=== PATIENT | male | born 1955 | race Caucasian/White ===

== ENCOUNTER 2022-01-08 10:28 | Outpatient (CLI) | payer OTHER, SELFPAY ==
[2022-01-08 16:55] LABS: Basophils Absolute Auto 0.1 K/mm3 (0.0-0.1); Basophils Percent Auto 1.2 % (0.2-1.2); Eosinophils Absolute Auto 0.2 K/mm3 (0-0.3); Eosinophils Percent Auto 2.5 % (0-4.4); Hematocrit 49.8 % (42.0-52.0); Hemoglobin 16.3 g/dL (14.0-18.0); Immature Granulocyte Absolute 0.02 K/mm3 (0.00-0.031); Immature Granulocyte Percent A 0.2 % (0-0.5); Lymphocytes Absolute Auto 2.22 K/mm3 (0.9-3.2); Lymphocytes Percent Auto 23.1 % (18.3-44.2); Mean Corpuscular HGB Conc 32.7 g/dl (32-36); Mean Corpuscular Hemoglobin 32.6 pg (26-34); Mean Corpuscular Volume 99.6 fl (80-100); Mean Platelet Volume 10.6 fl (7.4-10.4); Monocytes Absolute Auto 0.8 K/mm3 (0.1-0.6); Monocytes Percent Auto 8.5 % (2.6-8.5); Neutrophils Absolute Auto 6.2 K/mm3 (1.3-6.7); Neutrophils Percent Auto 64.5 % (45.5-73.1); Platelet Count Result 266 k/mm3 (150-375); Red Cell Distribution Width 12.9 % (11.5-14.5); White Blood Count 9.6 K/mm3 (4.5-10.0)
[2022-01-08 17:23] LABS: Alanine Aminotransferase 47 U/L (6-50); Albumin Level 4.8 g/dL (3.5-5.1); Alkaline Phosphatase 67 U/L (38-126); Anion Gap 9 mmol/L (8-16); Aspartate Amino Transferase 40 U/L (17-59); Bilirubin,Total 1.1 mg/dL (0.2-1.3); Blood Urea Nitrogen 10 mg/dL (9-20); Calcium 9.8 mg/dL (8.4-10.2); Carbon Dioxide 30 mmol/L (22-30); Chloride 94 mmol/L (98-107); Cholesterol 254 mg/dL (0-200); Estimated Glomerular Filt Rate > 60; Glucose 89 mg/dL (65-110); HDL Direct 58 mg/dL; Potassium 4.8 mmol/L (3.4-5.0); Sodium 133 mmol/L (137-145); Triglycerides 94 mg/dL (<150)
[2022-01-08 17:36] LABS: LDL Cholesterol Direct 176 mg/dL
[2022-01-08 17:55] LABS: Prostate Specific Antigen 1.2 ng/mL (< OR = 4.0)
== END 2022-01-08 10:29 | disposition home or self-care (01) ==
LOC: ANHGOSHLAB 10:30
PROVIDERS: PCP Nurse Practitioner Family; Visit Provider Nurse Practitioner Family
DX: Z12.5 Encounter for screening for malignant neoplasm of prostate (principal); E78.5 Hyperlipidemia, unspecified; I10 Essential (primary) hypertension
CPT/HCPCS: 36415; 80053; 80061; 84153; 84443; 85025; G0103

== ENCOUNTER 2022-02-16 07:45 | Outpatient (CLI) | payer OTHER, SELFPAY ==
[2022-02-16 09:36] LABS: Alanine Aminotransferase 49 U/L (6-50); Albumin Level 4.5 g/dL (3.5-5.1); Alkaline Phosphatase 59 U/L (38-126); Anion Gap 11 mmol/L (8-16); Aspartate Amino Transferase 36 U/L (17-59); Bilirubin,Total 1.2 mg/dL (0.2-1.3); Blood Urea Nitrogen 8 mg/dL (9-20); Calcium 8.8 mg/dL (8.4-10.2); Carbon Dioxide 28 mmol/L (22-30); Chloride 95 mmol/L (98-107); Cholesterol 165 mg/dL (0-200); Estimated Glomerular Filt Rate > 60; Glucose 94 mg/dL (65-110); HDL Direct 60 mg/dL; Potassium 4.9 mmol/L (3.4-5.0); Sodium 134 mmol/L (137-145); Triglycerides 57 mg/dL (<150)
[2022-02-16 09:42] LABS: LDL Cholesterol Direct 89 mg/dL
== END 2022-02-16 07:46 | disposition home or self-care (01) ==
LOC: ANHLAB 07:48
PROVIDERS: PCP Nurse Practitioner Family; Visit Provider Internal Medicine Cardiovascular Disease
DX: E78.5 Hyperlipidemia, unspecified (principal)
CPT/HCPCS: 36415; 80053; 80061

== ENCOUNTER 2022-02-23 07:39 | Outpatient (CLI) | payer OTHER, SELFPAY ==
--- NOTE | ~2022-02-23 | US_ITS ---
EXAMINATION: US arterial ankle brachial ind DATE: 02/23/2022 08:38 INDICATION: Peripheral vascular disease, unspecified. TECHNIQUE: Segmental pressures and plethysmographic and Doppler waveforms of the brachial and lower e xtremity arteries were obtained. COMPARISON: None. FINDINGS: Right and left brachial artery pressures of 104 mm Hg and 107 mm Hg, respectively, are concordant (no rmal difference <= 30 mmHg). The right ankle-brachial index (ALEX) is 0.47 (normal >= 0.9-1.0). The right great toe-brachial index (TBI) is 0.69 (normal >= 0.65). Arterial Doppler waveforms are biphasic at the ankle. The left ALEX is 0.63. The left dorsalis pedis arterial pressure was not measured due to poor detectab ility, but flow was demonstrated in the anterior tibial artery and dorsalis pedis on pulsed Doppler. The left TBI is 0.6. Arterial Doppler waveforms are biphasic in posterior tibial artery. IMPRESSION: 1. Severely decreased right ALEX and moderately decreased left ALEX, consistent with arterial occlusive disease. Reviewed, dictated and finalized at location A. IMPRESSION: 1. Severely decreased right ALEX and moderately decreased left ALEX, consistent w ith arterial occlusive disease.
--- NOTE | ~2022-02-23 | CT_ITS ---
EXAMINATION: CT lung screening DATE: 02/23/2022 08:39 INDICATION: Personal history of nicotine dependence, current smoker with 50 pack year history TECHNIQUE: Computed tomography (CT) of the chest was performed without intravenous contrast. The dose -length product (DLP) was 97.19 mGy-cm. Automated exposure control and iterative reconstruction techn Xiimoue were employed. COMPARISON: None FINDINGS: There is moderate emphysema. There are multiple small nodules of the lungs with an upper lo be predominance. The largest measures 4 mm in the right upper lobe. Cardiomegaly is noted. There is s mooth interlobular septal thickening in the lower lobes, consistent with mild pulmonary edema. There are trace pleural effusions. There is no pneumothorax. A single lead pacemaker of the left chest wall ends with its lead in the right ventricle. Mediastinal lymph nodes are upper limits of normal in siz e. IMPRESSION: 1. Lung-RADS category 2: Benign appearance or behavior. Continue annual screening with noncontrast lo w-dose chest CT in 12 months. Reviewed, dictated and finalized at location B. IMPRESSION: 1. Lung-RADS category 2: Benign appearance or behavior. Continue annual screeni ng with noncontrast low-dose chest CT in 12 months.
== END 2022-02-23 07:40 | disposition home or self-care (01) ==
PROVIDERS: PCP Nurse Practitioner Family; Visit Provider Nurse Practitioner Family
DX: Z12.2 Encounter for screening for malignant neoplasm of respiratory organs (principal); I73.9 Peripheral vascular disease, unspecified; Z87.891 Personal history of nicotine dependence
CPT/HCPCS: 71271; 93922

== ENCOUNTER 2022-03-06 07:49 | Outpatient (CLI) | payer OTHER, SELFPAY ==
--- NOTE | 2022-03-06 08:19 | ECHO_ITS ---
Patient Info Name: Miguelito Castelan Age: 67 years : 1955 Gender: Male Ht: 70 in Wt: 155 lbs BSA: 1.86 m2 HR: 70 bpm BP: 125 / 72 mmHg Technical Quality: Good Exam Date: 03/06/2022 9:16 AM Exam Location: [facility] Patient Status: Outpatient Admit Date: 03/06/2022 Staff Ordering Physician: Flavio Razo DO Manager Oracle: Jessenia Norris RDCS Attending Provider: Flavio Razo DO Referring Physician: Flavio Razo DO; Exam Type: CA echo dop color flow w con Study Info Indications I25.110 - Atherosclerotic heart disease of [place] coronary artery with unstable angina pectoris Complete two-dimensional, color flow and Doppler transthoracic echocardiogram is performed with contrast to opacify the left ventricle and to improve the deliniation of the left ventricle endocardial borders. Contrast/Agitated Saline Contrast/Ag. Saline: Definity Amount: 2.00 ml Administered By: Joanne Kramer RN Existing IV Access: Yes IV Access Condition: patent with no signs of infiltration Summary 1. Left ventricular chamber dimension is severely enlarged. 2. Left ventricular systolic function is globally severely reduced, estimated at 15-20%. 3. Entire apex is akinetic, other segments are hypokinetic. 4. Definity contrast administered improved wall motion interpretation. 5. The left ventricular diastolic function is grade I diastolic dysfunction. 6. E/e' 7 is not elevated. 7. Linear artifact in right ventricle suggestive of catheter(s), pacemaker lead(s), or ICD lead(s). 8. Left atrial chamber dimension is moderately enlarged. 9. Linear artifact in the right atrium suggestive of catheter(s), pacemaker lead(s), or ICD lead(s). 10. There is mild aortic valve sclerosis. 11. The mitral valve has mildly calcified annulus. 12. There is mild mitral valve regurgitation. Left Ventricle E/e' 7 is not elevated. Definity contrast administered improved wall motion interpretation. Entire apex is akinetic, other segments are hypokinetic. Left ventricular systolic function is globally severely reduced, estimated at 15-20%. Left ventricular chamber dimension is severely enlarged. The left ventricular diastolic function is grade I diastolic dysfunction. Right Ventricle Linear artifact in right ventricle suggestive of catheter(s), pacemaker lead(s), or ICD lead(s). Right ventricular systolic function is normal and with normal TAPSE 1.8 cm. Right ventricular chamber dimension is normal. Left Atria Left atrial chamber dimension is moderately enlarged. Right Atria Linear artifact in the right atrium suggestive of catheter(s), pacemaker lead(s), or ICD lead(s). Right atrial chamber dimension is normal. Aortic Valve The aortic valve is trileaflet. There is mild aortic valve sclerosis. There is no aortic valve stenosis. There is no aortic valve regurgitation. Pulmonic Valve There is no pulmonic regurgitation. Mitral Valve The mitral valve has mildly calcified annulus. There is no mitral valve stenosis. There is mild mitral valve regurgitation. Tricuspid Valve There is no tricuspid valve regurgitation. Pericardium/Pleural There is no pericardial effusion. Inferior Vena Cava Normal inferior vena cava with >50% collapse upon inspiration consistent with normal right atrial pressure, 5 mmHg. Aorta The aortic root size at the sinus of Valsalva is normal. Left Ventricular Outflow Tract
[2022-03-06] MEDS: PERFLUTREN LIPID MICROSPHERES 1.5 ML VIAL DILUTED TO 10 ML TOTAL VOLUME IV PUSH (09:30)
== END 2022-03-06 07:50 | disposition home or self-care (01) ==
LOC: ANHCARD 07:50
PROVIDERS: PCP Nurse Practitioner Family; Referring Provider Internal Medicine Cardiovascular Disease; Visit Provider Internal Medicine Cardiovascular Disease
DX: I25.10 Atherosclerotic heart disease of native coronary artery without angina pectoris (principal); I34.0 Nonrheumatic mitral (valve) insufficiency; I35.8 Other nonrheumatic aortic valve disorders
CPT/HCPCS: C8929; Q9957

== ENCOUNTER 2022-03-21 20:06 | Outpatient (NON) | payer OTHER, SELFPAY | END 2022-03-21 20:07 | disposition home or self-care (01) | LOC: ANHLAB 20:07 | PROVIDERS: PCP Family Medicine; Visit Provider Family Medicine | DX: R82.90 Unspecified abnormal findings in urine (principal) | CPT/HCPCS: 87086 ==

== ENCOUNTER 2023-01-10 08:45 | Outpatient (CLI) | payer OTHER, SELFPAY ==
[2023-01-10 13:05] LABS: Basophils Absolute Auto 0.1 K/mm3 (0.0-0.1); Basophils Percent Auto 1.2 % (0.2-1.2); Eosinophils Absolute Auto 0.2 K/mm3 (0-0.3); Eosinophils Percent Auto 2.6 % (0-4.4); Hematocrit 42.6 % (42.0-52.0); Hemoglobin 14.3 g/dL (14.0-18.0); Immature Granulocyte Absolute 0.04 K/mm3 (0.00-0.031); Immature Granulocyte Percent A 0.5 % (0-0.5); Lymphocytes Absolute Auto 1.54 K/mm3 (0.9-3.2); Lymphocytes Percent Auto 18.1 % (18.3-44.2); Mean Corpuscular HGB Conc 33.6 g/dl (32-36); Mean Corpuscular Hemoglobin 32.9 pg (26-34); Mean Corpuscular Volume 98.2 fl (80-100); Mean Platelet Volume 9.6 fl (7.4-10.4); Monocytes Absolute Auto 0.7 K/mm3 (0.1-0.6); Monocytes Percent Auto 7.8 % (2.6-8.5); Neutrophils Absolute Auto 5.9 K/mm3 (1.3-6.7); Neutrophils Percent Auto 69.8 % (45.5-73.1); Platelet Count Result 246 k/mm3 (150-375); Red Blood Count 4.34 M/mm3 (4.6-6.20); Red Cell Distribution Width 12.5 % (11.5-14.5); White Blood Count 8.5 K/mm3 (4.5-10.0)
[2023-01-10 13:21] LABS: Alanine Aminotransferase 35 U/L (6-50); Albumin Level 4.6 g/dL (3.5-5.1); Alkaline Phosphatase 56 U/L (38-126); Anion Gap 6 mmol/L (8-16); Aspartate Amino Transferase 61 U/L (17-59); Bilirubin,Total 0.9 mg/dL (0.2-1.3); Blood Urea Nitrogen 14 mg/dL (9-20); Calcium 9.3 mg/dL (8.4-10.2); Carbon Dioxide 31 mmol/L (22-30); Chloride 93 mmol/L (98-107); Cholesterol 183 mg/dL (0-200); Estimated Glomerular Filt Rate > 60; Glucose 82 mg/dL (65-110); HDL Direct 46 mg/dL; Potassium 4.5 mmol/L (3.4-5.0); Sodium 130 mmol/L (137-145); Triglycerides 137 mg/dL (<150); Uric Acid 7.7 mg/dL (3.5-8.5)
[2023-01-10 13:33] LABS: LDL Cholesterol Direct 107 mg/dL
[2023-01-10 13:47] LABS: Vitamin D 25 Hydroxy 30.8 ng/mL
[2023-01-10 13:50] LABS: Prostate Specific Antigen 0.8 ng/mL (< OR = 4.0); Thyroid Stimulating Hormone 0.932 uIU/mL (0.465-4.680)
[2023-01-10 17:09] LABS: Hemoglobin A1C 5.4 % (<5.7)
== END 2023-01-10 08:46 | disposition home or self-care (01) ==
LOC: ANHGOSHLAB 08:46
PROVIDERS: PCP Family Medicine; Visit Provider Nurse Practitioner Family
DX: R60.9 Edema, unspecified (principal); Z13.21 Encounter for screening for nutritional disorder; Z13.1 Encounter for screening for diabetes mellitus; Z12.5 Encounter for screening for malignant neoplasm of prostate; Z13.29 Encounter for screening for other suspected endocrine disorder; Z13.220 Encounter for screening for lipoid disorders; I10 Essential (primary) hypertension
CPT/HCPCS: 36415; 80053; 80061; 82306; 83036; 84153; 84443; 84550; 85025; G0103

== ENCOUNTER 2023-07-17 08:26 | Outpatient (CLI) | payer OTHER, SELFPAY ==
[2023-07-17 13:46] LABS: Basophils Absolute Auto 0.1 K/mm3 (0.0-0.1); Eosinophils Absolute Auto 0.3 K/mm3 (0-0.3); Eosinophils Percent Auto 2.5 % (0-4.4); Hemoglobin 16.4 g/dL (14.0-18.0); Immature Granulocyte Absolute 0.06 K/mm3 (0.00-0.031); Immature Granulocyte Percent A 0.5 % (0-0.5); Lymphocytes Absolute Auto 2.51 K/mm3 (0.9-3.2); Lymphocytes Percent Auto 21.3 % (18.3-44.2); Mean Corpuscular HGB Conc 33.5 g/dl (32-36); Mean Corpuscular Hemoglobin 33.1 pg (26-34); Mean Corpuscular Volume 98.8 fl (80-100); Monocytes Absolute Auto 1.1 K/mm3 (0.1-0.6); Monocytes Percent Auto 9.6 % (2.6-8.5); Neutrophils Absolute Auto 7.7 K/mm3 (1.3-6.7); Neutrophils Percent Auto 65.1 % (45.5-73.1); Platelet Count Result 298 k/mm3 (150-375); Red Blood Count 4.96 M/mm3 (4.6-6.20); Red Cell Distribution Width 12.5 % (11.5-14.5); White Blood Count 11.8 K/mm3 (4.5-10.0)
[2023-07-17 13:53] LABS: Alanine Aminotransferase 46 U/L (6-50); Alkaline Phosphatase 68 U/L (38-126); Anion Gap 12 mmol/L (8-16); Aspartate Amino Transferase 97 U/L (17-59); Bilirubin,Total 1.2 mg/dL (0.2-1.3); Blood Urea Nitrogen 12 mg/dL (9-20); Calcium 10.1 mg/dL (8.4-10.2); Carbon Dioxide 30 mmol/L (22-30); Chloride 94 mmol/L (98-107); Cholesterol 210 mg/dL (0-200); Estimated Glomerular Filt Rate > 60; Glucose 80 mg/dL (65-110); HDL Direct 62 mg/dL; Potassium 4.7 mmol/L (3.4-5.0); Sodium 136 mmol/L (137-145); Triglycerides 137 mg/dL (<150)
[2023-07-17 14:04] LABS: LDL Cholesterol Direct 118 mg/dL
== END 2023-07-17 08:27 | disposition home or self-care (01) ==
LOC: ANHGOSHLAB 08:27
PROVIDERS: PCP Family Medicine; Visit Provider Nurse Practitioner Family
DX: E78.5 Hyperlipidemia, unspecified (principal); I10 Essential (primary) hypertension; I25.119 Atherosclerotic heart disease of native coronary artery with unspecified angina pectoris; F17.210 Nicotine dependence, cigarettes, uncomplicated; Z95.5 Presence of coronary angioplasty implant and graft
CPT/HCPCS: 36415; 80053; 80061; 85025

== ENCOUNTER 2023-08-20 07:25 | Outpatient (CLI) | payer OTHER, SELFPAY ==
--- NOTE | 2023-08-20 07:28 | ECHO_ITS ---
Patient Info Name: Miguelito Castelan Age: 68 years : 1955 Gender: Male Ht: 70 in Wt: 156 lbs BSA: 1.87 m2 HR: 72 bpm BP: 120 / 78 mmHg Technical Quality: Fair Exam Date: 08/20/2023 7:47 AM Exam Location: [facility] Patient Status: Outpatient Admit Date: 08/20/2023 Staff Ordering Physician: Flavio Razo DO Graphic Editor: Attending Provider: Flavio Razo DO Referring Physician: Dung TRISTAN; Exam Type: CA echo doppler color flow Study Info Indications I51.9 - Heart disease, unspecified Complete two-dimensional, color flow and Doppler transthoracic echocardiogram is performed. Summary 1. Complete two-dimensional, color flow and Doppler transthoracic echocardiogram is performed. 2. Left ventricular chamber dimension is severely enlarged. 3. Basal to apical anteroseptum, septum and apex are akinetic. 4. Left ventricular systolic function is severely globally reduced, estimated at 25-30%. 5. The left ventricular diastolic function is grade I diastolic dysfunction. 6. E/e' 5 is not elevated. 7. There is trace tricuspid valve regurgitation. 8. No pulmonary hypertension, estimated pulmonary arterial systolic pressure is 22 mmHg. Left Ventricle E/e' 5 is not elevated. Basal to apical anteroseptum, septum and apex are akinetic. Left ventricular systolic function is severely globally reduced, estimated at 25-30%. Left ventricular chamber dimension is severely enlarged. The left ventricular diastolic function is grade I diastolic dysfunction. Right Ventricle Right ventricular systolic function is normal and with normal TAPSE 2.1 cm. Right ventricular chamber dimension is normal. Left Atria Left atrial chamber dimension is normal. Right Atria Right atrial chamber dimension is normal. Aortic Valve The aortic valve is trileaflet. There is no aortic valve stenosis. There is no aortic valve regurgitation. Pulmonic Valve There is no pulmonic regurgitation. Mitral Valve There is no mitral valve stenosis. There is no mitral valve regurgitation. Tricuspid Valve There is trace tricuspid valve regurgitation. No pulmonary hypertension, estimated pulmonary arterial systolic pressure is 22 mmHg. Pericardium/Pleural There is no pericardial effusion. Inferior Vena Cava Normal inferior vena cava with >50% collapse upon inspiration consistent with normal right atrial pressure, 5 mmHg. Aorta The aortic root size at the sinus of Valsalva is normal. Left Ventricular Outflow Tract Name Value Normal LVOT 2D LVOT Diameter 2.0 cm LVOT Doppler LVOT Peak Gradient 3 mmHg LVOT Mean Gradient 1 mmHg LVOT VTI 16 cm LVOT VTI/AV VTI Ratio 0.7 LVOT Stroke Volume 52 ml LVOT CO 3.8 l/min LVOT CI 2.1 l/min/m2 Pulmonic Valve Name Value Normal PV Doppler PV
== END 2023-08-20 07:26 | disposition home or self-care (01) ==
LOC: ANHCARD 07:27
PROVIDERS: PCP Family Medicine; Visit Provider Internal Medicine Cardiovascular Disease
DX: R93.1 Abnormal findings on diagnostic imaging of heart and coronary circulation (principal); I07.1 Rheumatic tricuspid insufficiency
CPT/HCPCS: 93306

== ENCOUNTER 2024-01-15 08:42 | Outpatient (CLI) | payer OTHER, SELFPAY ==
[2024-01-15 13:23] LABS: Basophils Absolute Auto 0.1 K/mm3 (0.0-0.1); Basophils Percent Auto 1.1 % (0.2-1.2); Cholesterol 177 mg/dL (0-200); Eosinophils Absolute Auto 0.2 K/mm3 (0-0.3); Eosinophils Percent Auto 2.3 % (0-4.4); HDL Direct 59 mg/dL; Hematocrit 46.9 % (42.0-52.0); Hemoglobin 15.8 g/dL (14.0-18.0); Immature Granulocyte Absolute 0.05 K/mm3 (0.00-0.031); Immature Granulocyte Percent A 0.6 % (0-0.5); Lymphocytes Absolute Auto 1.67 K/mm3 (0.9-3.2); Lymphocytes Percent Auto 18.4 % (18.3-44.2); Mean Corpuscular HGB Conc 33.7 g/dl (32-36); Mean Corpuscular Hemoglobin 33.3 pg (26-34); Mean Corpuscular Volume 98.7 fl (80-100); Mean Platelet Volume 10.5 fl (7.4-10.4); Monocytes Absolute Auto 0.8 K/mm3 (0.1-0.6); Monocytes Percent Auto 8.4 % (2.6-8.5); Neutrophils Absolute Auto 6.3 K/mm3 (1.3-6.7); Neutrophils Percent Auto 69.2 % (45.5-73.1); Platelet Count Result 214 k/mm3 (150-375); Red Blood Count 4.75 M/mm3 (4.6-6.20); Red Cell Distribution Width 12.4 % (11.5-14.5); Triglycerides 154 mg/dL (<150); White Blood Count 9.1 K/mm3 (4.5-10.0)
[2024-01-15 13:34] LABS: LDL Cholesterol Direct 96 mg/dL
[2024-01-15 14:10] LABS: Hemoglobin A1C 5.4 % (<5.7)
[2024-01-18 15:24] LABS: Vitamin D 1,25 (OH)2 Total 38 pg/mL (18-72); Vitamin D2 1,25 (OH)2 <8 pg/mL; Vitamin D3 1,25 (OH)2 38 pg/mL
== END 2024-01-15 08:43 | disposition home or self-care (01) ==
LOC: ANHGOSHLAB 08:42
PROVIDERS: PCP Family Medicine; Visit Provider Nurse Practitioner Family
DX: Z12.5 Encounter for screening for malignant neoplasm of prostate (principal); R73.03 Prediabetes; E03.9 Hypothyroidism, unspecified; E55.9 Vitamin D deficiency, unspecified; E53.8 Deficiency of other specified B group vitamins; E78.5 Hyperlipidemia, unspecified
CPT/HCPCS: 36415; 80061; 82607; 82652; 83036; 84153; 84443; 85025; G0103

== ENCOUNTER 2024-02-28 07:57 | Outpatient (CLI) | payer OTHER, SELFPAY ==
--- NOTE | ~2024-02-28 | XR_ITS ---
EXAMINATION: XR lumbar spine min 4V DATE: 02/28/2024 08:10 INDICATION: Low back pain. TECHNIQUE: 5 views of lumbar spine were obtained. COMPARISON: None. FINDINGS: There is 5 degrees levocurvature of thoracolumbar spine. There is 3 mm anterolisthesis of L 4 on L5. Vertebral body heights are normal. There is mildly decreased disc height at L4-L5 and severe ly decreased disc height at L5-S1. There are endplate osteophytes at all levels. There is multilevel severe facet joint osteoarthritis in lower lumbar spine. IMPRESSION: 1. Severe lower lumbar spondylosis. Reviewed, dictated and finalized at location A.
== END 2024-02-28 07:58 | disposition home or self-care (01) ==
PROVIDERS: PCP Family Medicine; Visit Provider Family Medicine
DX: M47.896 Other spondylosis, lumbar region (principal)
CPT/HCPCS: 72110

== ENCOUNTER 2024-06-25 06:38 | Outpatient (CLI) | payer OTHER, SELFPAY ==
--- NOTE | ~2024-06-25 | CT_ITS ---
EXAMINATION: CT lumbar spine wo con DATE: 06/25/2024 07:03 INDICATION: Low back pain, unspecified. TECHNIQUE: Computed tomography (CT) of the lumbar spine was performed without intravenous contrast. A utomated exposure control and iterative reconstruction technique were employed. The dose-length produ ct was 373.06 mGy-cm. COMPARISON: Lumbar spine radiographs 02/28/2024 FINDINGS: A calcified right lung nodule is consistent with old granulomatous disease. There is calcif ied atherosclerosis of the aorta and many of the other arteries. There is 4 degrees levocurvature of lumbar spine. Vertebral body heights are normal. There is severely decreased disc height at L5-S1. Th e following disc levels are specifically discussed: L1-L2: The disc does not extend beyond the endplate margin. There is severe bilateral facet joint ost eoarthritis. There is no neural foraminal stenosis. There is no central canal stenosis. L2-L3: The disc is bulging. There is severe bilateral facet joint osteoarthritis. There is mild bilat eral neural foraminal stenosis. There is mild central canal stenosis. L3-L4: The disc is bulging. There is severe bilateral facet joint osteoarthritis. There is mild bilat eral neural foraminal stenosis. There is mild central canal stenosis. L4-L5: The disc is bulging. There is severe bilateral facet joint osteoarthritis. There is moderate b ilateral neural foraminal stenosis. There is mild central canal stenosis. L5-S1: The disc is bulging. There is severe bilateral facet joint osteoarthritis. There is mild bilat eral neural foraminal stenosis. There is mild central canal stenosis. IMPRESSION: 1. Severe lower lumbar spondylosis. Reviewed, dictated and finalized at location A. OR NATUROPATHIC
== END 2024-06-25 06:39 | disposition home or self-care (01) ==
PROVIDERS: PCP Family Medicine; Visit Provider Anesthesiology Pain Medicine
DX: M47.817 Spondylosis without myelopathy or radiculopathy, lumbosacral region (principal)
CPT/HCPCS: 72131

== ENCOUNTER 2024-08-12 08:49 | Outpatient (CLI) | payer OTHER, SELFPAY ==
--- OUTSIDE RECORDS SUMMARY | 2024-08-12 09:19 | XMS_ITS | Encounter Summary ---
Author Organization [facility] Address [address] [place] [address] Care Team Providers Care Custom Miller Name Role Phone Sharif Goodwin MD Primary Care Provider [phone]- [phone] Caity Hickman MD Primary Care Provider Encounter Details Date Type Department Care Team ([facility] Contact Info) Description 10/10/2016 Orders Only [facility] ProviderElio MD [address] [place] [id number] Social History Tobacco Use Types Packs/Day Years Used Date Smoking Tobacco: Former Comments:Smoking History Pac ks/day: 1 Packs Alcohol Use Standard Drinks/Week Comments Yes 0 (1 standard drink = 0.6 oz pur e alcohol) Sex and Gender Information Value Date Recorded Sex Assigned at Not on file 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 Historical Provider [facility] LESLIE CASAREZ Final Result documented in this encounter Visit Diagnoses Not on filedocumented in this encounter Additional Health Concerns Infection Onset Date Last Indicated Resolved Time COVID: Suspected 02/26/2022 02/26/2022 02/26/2022 11:31 PM CDT documented as of this encounter Care Teams Custom Miller Relationship Specialty Start Date End Date Sharif Goodwin MD [address] [place] [address] PCP - General 09/14/16 03/16/20 Caity Hickman MD [address] [place] [address] PCP - General Family Practice 03/17/20 documented as of this encounter
--- OUTSIDE RECORDS SUMMARY | 2024-08-12 09:19 | XMS_ITS | Encounter Summary ---
Author Organization [facility] Address [address] [place] [address] Care Team Providers Care Window And Siding Craftsman Name Role Phone Sharif Goodwin MD Primary Care Provider +1- [phone] Caity Hickman MD Primary Care Provider Encounter Details Date Type Department Care Team ([facility] Contact Info) Description 07/13/2016 Orders Only [facility] ProviderElio MD [address] [place] [address] Social History Tobacco Use Types Packs/Day Years Used Date Smoking Tobacco: Never Assessed Sex and Gender Information Value Date Recorded Sex Assigned at Not on file 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 Historical Provider [facility] LESLIE CASAREZ Final Result documented in this encounter Visit Diagnoses Not on filedocumented in this encounter Additional Health Concerns Infection Onset Date Last Indicated Resolved Time COVID: Suspected 02/26/2022 02/26/2022 02/26/2022 11:31 PM CDT documented as of this encounter Care Teams Window And Siding Craftsman Relationship Specialty Start Date End Date Sharif Goodwin MD [address] [place] [address] PCP - General 09/14/16 03/16/20 Caity Hickman MD [address] [place] [address] PCP - General Family Practice 03/17/20 documented as of this encounter
--- OUTSIDE RECORDS SUMMARY | 2024-08-12 09:20 | XMS_ITS | Encounter Summary ---
Author Organization [facility] Address [address] [place] [address] Care Team Providers Care Manager Asset Name Role Phone Caity Hickman MD Primary Care Provider Encounter Details Date Type Department Care Team (Late st Contact Info) Description 03/08/2022 Abstract [facility], [address] [address] Baldomero Gold MA Social History Tobacco Use Types Packs/Day Years Used Date Smoking Tobacco: Never Assessed Sex and Gender Information Value Date Recorded Sex Assigned at Not on file Legal Sex Male 11:55 AM CDT Gender Identity Not on file Sexual Orientation Not on file documented as of this encounter Plan of Treatment Not on file documented as of this encounter Procedures Procedure Name Priority Date/Time Associated Diagnosis Comments COMPREHENSIVE METABOLIC PANEL Routine 02/16/2022 LIPID PANEL Routine 02/16/2022 documented in this encounter Results * COMPREHENSIVE METABOLIC PANEL (02/16/2022) SODIUM S/P/B 134 GLUCOSE 94 mg/dL AST 36 BUN 8 CREATININE S/P/B 0.70 0.7 - 1.3 CALCIUM S/P/B 8.8 POTASSIUM S/P/B 4.9 CHLORIDE S/P/B 95 ALT 49 GFR ESTIMATE >60 us Doc [facility] Final Result * LIPID PANEL (02/16/2022) CHOLESTEROL 165 TRIGLYCERIDES 57 HDL 60 LDL (CALCULATED) 89 us Doc [facility] Final Result documented in this encounter Visit Diagnoses Not on filedocumented in this encounter Care Teams Manager Asset Relationship Specialty Start Date End Date Caity Hickman MD [address] [place] [address] PCP - General FAMILY PRACTICE 03/07/22 documented as of this encounter
--- OUTSIDE RECORDS SUMMARY | 2024-08-12 09:20 | XMS_ITS | Clinical Summary ---
Author Organization [facility] Address [address] [place] [address] Care Team Providers Care Food Porter Name Role Phone Caity Hickman MD Primary Care Provider Family History Medical History Relation Comments CAD Father Diabetes Father MA Father Pancreatic cancer Mother Relation Status Comments Father Mother Social History Tobacco Use Types Packs/Day Years Used Date Smoking Tobacco: Every Day Cigarettes 1.5 75 Comments:CIGARETTES AND CIGA RS Alcohol Use Standard Drinks/Week Comments Yes 8.3 (1 standard drink = 0.6 oz p ure alcohol) 4-5 BEERS PER DAY WITH MEALS Sex and Gender Information Value Date Recorded Sex Assigned at Not on file Legal Sex Male 11:55 AM CDT Gender Identity Not on file Sexual Orientation Not on file Plan of Treatment Health Maintenance Due Date Last Done Comments Colorectal Cancer Screening Colonoscopy (10 Years) 1955 Pneumococcal Vaccine: 65+ Ye ars (1 of 2 - PCV) 1961 Hepatitis C 1973 DTaP, Tdap and Td Vaccines ( 1 - Tdap) 1974 Zoster Vaccines (1 of 2) 2005 Annual Medicare Wellness Visit 02/20/2020 COVID-19 Vaccine ( - 2023-2 5 season) 2024 Influenza Adult (#1) 2024 RSV Immunization or 60+ Years (1 - 1-dose 75+ series) 2030 Meningococcal B Vaccine Aged Out No l onger eligible based on patient's age to complete this topic Meningococcal Vaccine Aged Out No randee lisandra eligible based on patient's age to complete this topic RSV Immunizations Under 20 Months Aged Out No longer eligible based on patient's age to complete this topic Insurance [employer] Care Teams Food Porter Relationship Specialty Start Date End Date Caity Hickman MD [address] [place], [place] [id number] PCP - General FAMILY PRACTICE 03/07/22
--- OUTSIDE RECORDS SUMMARY | 2024-08-12 09:20 | XMS_ITS | Continuity of Care Document ---
Author Name [facility] Organization [facility] Care Team Providers Care Dermatology Nurse Name Role Phone [facility] Unavailable Unavailable Encounters Combined list of: 1) Encounters from [facility] Veterans Affairs facilities going backup to the last 18 months, not all VA inpatient encounters are included; 2) Encounters from the Department of Defense facilities going backup to 280 months. Location Location Details Encounter Type Encounter Number Reason For Visit Attending Provider ADM Date DC Date Status Disposition Source [facility] Outpatient Encounter [id number] 02/14 [facility] [place]
--- OUTSIDE RECORDS SUMMARY | 2024-08-12 09:20 | XMS_ITS | Referral Summary ---
Author Organization [facility] [address] Address [address] [place] [address] Care Team Providers Care Weaving Loom Operator Name Role Phone Caity Hickman MD Primary Care Provider Allergies No known active allergies Medications aspirin (ASPIR-81) 81 mg tablet take 1 tablet by oral route every day 0 0 10/24/2016 Active atorvastatin (LIPITOR) 40 mg tablet Take 20 mg by mouth daily 03/08/2020 Active diphenhydrAMINE (BENADRYL) 25 mg capsule Take 25 mg by mouth daily Take three tablets in morning as needed. Active tamsulosin (FLOMAX) 0.4 mg extended release capsuleIndicatio ns:benign prostatic hyperplasia with lower urinary tract sx Take 0.4 mg by mouth daily Active ezetimibe (ZETIA) 10 mg tabletIndication s:hyperlipidemia Take 10 mg by mouth daily Active metoprolol XL (TOPROL-XL) 25 mg extended release tablet Take 1 tablet (25 mg total) by mouth daily 30 tablet 03/03/2022 Active furosemide (LASIX) 40 mg tablet Take 1 tablet (40 mg total) by mouth daily 30 tablet 03/03/2022 Active ticagrelor (BRILINTA) 90 mg tablet Take 1 tablet (90 mg total) by mouth 2 (two) times a day 60 tablet 11 03/02/2022 Active sacubitriL-valsa rtan (ENTRESTO) 24-26 mg tabletIndication s:chronic heart failure Take 1 tablet by mouth 2 (two) times a day 60 tablet 03/02/2022 Active Active Problems Problem Noted Date Diagnosed Date Acute on chronic congestive heart failure (CMS/H CC) 03/02/2022 COPD exacerbation 03/02/2022 NSTEMI (non-ST elevated myocardial infarction) ( [facility]/HCC) 03/02/2022 Respiratory distress 02/26/2022 Coronary artery disease invo lving [place] coronary artery of [place] heart without angina pectoris 02/05/2017 Cardiomyopathy, ischemic 02/05/2017 History of coronary artery stent placement 02/05 ICD (implantable cardioverter-defibrillator) in place 11/26/2016 Overview (08/18/2020): [employer] NeurostimroniTour Desk Single ICD, Dx: ICM-DOI 11/23/[address] Sawyer. F-Card. Bi[employer]ron[employer] Remote Home Monitoring Q3 mo, Office device checks q1 yr. Device is on ADVISORY for Premature Battery Depletion. Social History Tobacco Use Types Packs/Day Years Used Date Smoking Tobacco: Every Day Cigarettes Smokeless Tobacco: Never Comments:Smoking History Pac ks/day: 1 Packs Alcohol Use Standard Drinks/Week Comments Yes 0 (1 standard drink = 0.6 oz pur e alcohol) Overall Financial Resource Strain (CARDIA) Answe r Date Recorded How hard is it for you to pa y for the very basics like food, housing, medical care, and heating? 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 Gender Identity Not on file Sexual Orientation Not on file Last Filed Vital Signs Vital Sign Reading Time Taken Comments Blood Pressure 127/81 03/02/2022 12:00 PM CDT Pulse 95 03/02/2022 1:45 PM CDT Temperature 36.4 C (97.6 F) 03/02/2022 12:00 AM CDT Respiratory Rate 18 03/02/2022 1:45 PM CDT Oxygen Saturation 99% 03/02/2022 1:45 PM CDT Inhaled Oxygen Concentration - - Weight 66 kg (145 lb 8.1 oz) 03/02/2022 5:50 AM CDT Height 177.8 cm (5' 10 ) 03/02/2022 8:49 AM CDT Body Mass Index 20.88 03/02/2022 5:50 AM CDT Plan of Treatment Not on file Medical Devices Implanted Type Area Rehab Trainer Device Identifier Shelf Expiration Date Model / Serial / Lot Icd-11/23/2016 Implanted:2016 by Maribel Sawyer MD (Quantity not on file) ICD Chest [employer] ICM IPERIA 7 VRT / [id number] / [employer] Juan Synergy Xd Monorail 2.25mm 12mm 144cm Delivery System 1 Access [id number] - [id number] Implanted:Qty: 1 on 02/28/2022 by Juliano Calles MD at [facility] [employer] 08/02/2023 [id number] / / [id number] [employer] AVdirect Synergy Xd Monorail 3mm 20mm 144cm Delivery System 1 Access Port [id number] - [id number] Implanted:Qty: 1 on 02/28/2022 by Juliano Calles MD at [facility] [employer] Juan 06/01/2023 [id number] / / [id number] [employer] Stent Coronary De Rx Cocr Xience Skypoint 3.42r12gu [id number] - [id number] Implanted:Qty: 1 on 02/28/2022 by Juliano Calles MD at [facility] [employer] 07/31/2023 [id number] / [id number] Angio-Seal Vip 6fr Closere Device [id number] - [id number] Implanted:Qty: 1 on 02/28/2022 by Juliano Calles MD at [facility] [employer] 11/14/2022 [id number] / / [id number] Insurance [facility] RONAK VASQUEZ [id number] Advance Directives For more information, please contact: [phone] * Full Code (Latest Code Status on File) Date Activated Date Inactivated Comments 02/26/2022 1:50 PM 03/02/2022 7:33 PM Care Teams Weaving Loom Operator Relationship Specialty Start Date End Date Caity Hickman MD PCP - General Family Practice 03/17/20
--- OUTSIDE RECORDS SUMMARY | 2024-08-12 09:20 | XMS_ITS | Clinical Summary ---
Author Organization [facility] [address] Address [address] [place] [address] Care Team Providers Care Drilling Machine Operator Name Role Phone Caity Hickman MD [...] Date Acute on chronic congestive heart failure ([facility]/H CC) 03/02/2022 COPD exacerbation 03/02/2022 NSTEMI (non-ST elevated myocardial infarction) ( [facility]/HCC) 03/02/2022 Respiratory distress 02/26/2022 Coronary artery disease invo lving [place] coronary artery of [place] heart without angina pectoris 02/05/2017 Cardiomyopathy, ischemic 02/05/2017 History of coronary artery stent placement 02/05 ICD (implantable cardioverter-defibrillator) in place 11/26/2016 Overview (08/18/2020): RecoVendroniNala Single ICD, Dx: ICM-DOI 11/23/[address] Sawyer. F-Card. Biotronik Remote Home Monitoring Q3 mo, Office device checks q1 yr. Device is on ADVISORY for Premature Battery Depletion. 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 Gender Identity Not on file Sexual Orientation Not on file Obstetrics History Last Filed Vital Signs Vital Sign Reading [...] 03/02/2022 5:50 AM CDT Plan of Treatment Health Maintenance Due Date Last Done Comments Colon Cancer Screening-Colonoscopy 1955 Depression Screening 1955 Fall Risk Assessment 1955 Hepatitis C Screening 1955 Prostate Cancer Screening-PSA 1955 Pneumococcal vaccine 65+ (1 of 2 - PCV) 1961 DTaP/Tdap/Td Vaccine (1 - Tdap) 1966 Hepatitis B Screening 1973 Zoster Vaccine (1 of 2) 2005 Abdominal Aortic Aneurysm (A AA) Screen 02/20/2020 Well Visit 65+ 02/20/2020 Influenza Vaccine (#1) 2024 9, 03/28/2018, 03/29/2017 Medical Devices Implanted Type Area Infant Childcare Provider Device Identifier Shelf Expiration Date Model / Serial / Lot Icd-11/23/2016 Implanted:2016 by Maribel Sawyer MD (Quantity not on file) ICD Chest [employer] ICM IPERIA 7 VRT / [id number] / [employer] Juan Synergy Xd Monorail 2.25mm 12mm 144cm Delivery System 1 Access [id number] - [id number] Implanted:Qty: 1 on 02/28/2022 by Juliano Calles MD at [facility] [employer] 08/02/2023 [id number] 220 / / [id number] [place] [employer] Juan Synergy Xd Monorail 3mm 20mm 144cm Delivery System 1 Access Port [id number] - [id number] Implanted:Qty: 1 on 02/28/2022 by Juliano Calles MD at [facility] [employer] 06/01/2023 [id number] 300 / / [id number] [employer] Stent Coronary De Rx Cocr Xience Skypoint [id number] - [id number] Implanted:Qty: 1 on 02/28/2022 by Juliano Calles MD at [facility] [employer] 07/31/2023 [id number] 2 / [id number] [employer] Juan Angio-Seal Vip 6fr Closere Device [id number] - [id number] Implanted:Qty: 1 on 02/28/2022 by Juliano Calles MD at [facility] [employer] 11/14/2022 [id number] / / [id number] Insurance [facility] Advance Directives For more information, please contact: [phone] * Full Code (Latest Code Status on File) Date Activated Date Inactivated Comments 02/26/2022 1:50 PM 03/02/2022 7:33 PM Care Teams Drilling Machine Operator Relationship Specialty Start Date End Date Caity Hickman MD PCP - General Family Practice 03/17/20
[2024-08-12 10:31] LABS: Basophils Absolute Auto 0.1 K/mm3 (0.0-0.1); Basophils Percent Auto 0.8 % (0.2-1.2); Eosinophils Absolute Auto 0.2 K/mm3 (0-0.3); Hemoglobin 15.6 g/dL (14.0-18.0); Immature Granulocyte Absolute 0.04 K/mm3 (0.00-0.031); Immature Granulocyte Percent A 0.4 % (0-0.5); Lymphocytes Absolute Auto 1.62 K/mm3 (0.9-3.2); Lymphocytes Percent Auto 17.6 % (18.3-44.2); Mean Corpuscular HGB Conc 33.9 g/dl (32-36); Mean Corpuscular Hemoglobin 33.9 pg (26-34); Monocytes Absolute Auto 0.8 K/mm3 (0.1-0.6); Monocytes Percent Auto 8.5 % (2.6-8.5); Neutrophils Absolute Auto 6.5 K/mm3 (1.3-6.7); Neutrophils Percent Auto 70.7 % (45.5-73.1); Platelet Count Result 219 k/mm3 (150-375); Red Cell Distribution Width 12.3 % (11.5-14.5); White Blood Count 9.2 K/mm3 (4.5-10.0)
[2024-08-12 11:28] LABS: Alanine Aminotransferase 39 U/L (6-50); Albumin Level 4.6 g/dL (3.5-5.1); Alkaline Phosphatase 54 U/L (38-126); Anion Gap 11 mmol/L (4-12); Aspartate Amino Transferase 40 U/L (17-59); Bilirubin,Total 1.4 mg/dL (0.2-1.3); Blood Urea Nitrogen 11 mg/dL (9-20); Calcium 9.7 mg/dL (8.4-10.2); Carbon Dioxide 28 mmol/L (22-30); Chloride 94 mmol/L (98-107); Cholesterol 205 mg/dL (0-200); Estimated Glomerular Filt Rate > 60; Glucose 105 mg/dL (65-110); HDL Direct 50 mg/dL; Potassium 4.8 mmol/L (3.4-5.0); Sodium 133 mmol/L (137-145); Triglycerides 158 mg/dL (<150)
[2024-08-12 11:38] LABS: LDL Cholesterol Direct 116 mg/dL
== END 2024-08-12 08:50 | disposition home or self-care (01) ==
PROVIDERS: PCP Nurse Practitioner Family; Visit Provider Nurse Practitioner Family
DX: E78.5 Hyperlipidemia, unspecified (principal); I10 Essential (primary) hypertension
CPT/HCPCS: 36415; 80053; 80061; 85025

== ENCOUNTER 2024-09-15 07:18 | Day surgery (SDC) | payer OTHER, SELFPAY ==
[2024-08-26 13:28] VITALS: BMI 22.7
--- NOTE | ~2024-09-15 | XR_ITS ---
XR fluoroscopy no charge Indication: Bilateral L3, L4 and L5 medial branch/dorsal ramus nerve block TECHNIQUE: Fluoroscopy used during Bilateral L3, L4 and L5 medial branch/dorsal ramus nerve block pe rformed by [Braulio Villa MD] on 09/15/2024. 26 seconds of fluoroscopy with 15 fluoroscopic im ages captured. FINDINGS: Correlate with procedure note. IMPRESSION: Fluoroscopy used during Bilateral L3, L4 and L5 medial branch/dorsal ramus nerve block. Reviewed, dictated and finalized at location A. IMPRESSION: Fluoroscopy used during Bilateral L3, L4 and L5 medial branch/dorsa l ramus nerve block.
--- OUTSIDE RECORDS SUMMARY | 2024-09-15 07:28 | XMS_ITS | Encounter Summary ---
Author Organization [facility] Address [address] [place] [address] Care Team Providers Care Ecommerce Marketing Specialist Name Role Phone Sharif Goodwin MD Primary Care Provider [phone]- [phone] Caity Hickman MD Primary Care Provider Encounter Details Date Type Department Care Team ([facility] Contact Info) Description 10/10/2016 Orders Only [facility] ProviderElio MD [address] [place] [address] Social History Tobacco Use Types Packs/Day Years Used Date Smoking Tobacco: Former Comments:Smoking History Pac ks/day: 1 Packs Alcohol Use Standard Drinks/Week Comments Yes 0 (1 standard drink = 0.6 oz pur e alcohol) Sex and Gender Information Value Date Recorded Sex Assigned at Not on file 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
--- OUTSIDE RECORDS SUMMARY | 2024-09-15 07:28 | XMS_ITS | Encounter Summary ---
Author Organization [facility] Address [address] [place] [address] Care Team Providers Care Patient Appointment Coordinator Name Role Phone Caity Hickman MD Primary Care Provider Encounter Details Date Type Department Care Team (Late st Contact Info) Description 03/08/2022 Abstract [facility], [address] [address] Baldom[place] Social History Tobacco Use [...] on filedocumented in this encounter Care Teams Patient Appointment Coordinator Relationship Specialty Start Date End Date Caity Hickman MD [address] [facility] [address] [place] [address] PCP - General FAMILY PRACTICE 03/07/22 documented as of this encounter
--- OUTSIDE RECORDS SUMMARY | 2024-09-15 07:28 | XMS_ITS | Referral Summary ---
Author Organization [facility] [address] Address [address] [place] [address] Care Team Providers Care Rotating Field Assembler Name Role Phone Caity Hickman MD Primary [...] Date Acute on chronic congestive heart failure 2021 COPD exacerbation 03/02/2022 NSTEMI (non-ST elevated myocardial infarction) 0 03/02/2022 Respiratory distress 02/26/2022 Coronary artery disease invo lving minto coronary artery of minto heart without angina pectoris 02/05/2017 Cardiomyopathy, ischemic 02/05/2017 History of coronary artery stent placement 02/05 ICD (implantable cardioverter-defibrillator) in place 11/26/2016 Overview (08/18/2020): Fibras Andinas ChileroniKickAss Candy Single ICD, Dx: ICM-DOI 11/23/[address] Sawyer. F-Card. 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 Gender Identity Not on file Sexual Orientation [...] on file Medical Devices Implanted Type Area Utility Helicopter Repairer Device Identifier Shelf Expiration Date Model / Serial / Lot Icd-11/23/2016 Implanted:2016 by Maribel Sawyer MD (Quantity not on file) ICD Chest Biotronik Inc ICM IPERIA 7 VRT / [id number] / [place] [employer] Juan Synergy Xd Monorail 2.25mm 12mm 144cm Delivery System 1 Access [id number] - [id number] Implanted:Qty: 1 on 02/28/2022 by Juliano Calles MD at [facility] [employer] 08/02/2023 [id number] 220 / / [id number] [place] [employer] Juan Synergy Xd Monorail 3mm 20mm 144cm Delivery System 1 Access Port [id number] - [id number] Implanted:Qty: 1 on 02/28/2022 by Juliano Calles MD at [facility] [employer] 06/01/2023 [id number] 300 / / [id number] [employer] Stent Coronary De Rx Cocr Xience Skypoint [id number] - [id number] Implanted:Qty: 1 on 02/28/2022 by Juliano Calles MD at [facility] [employer] 07/31/2023 [id number] 2 / / [id number] [employer] Angio-Seal Vip 6fr Closere Device [id number] - [id number] Implanted:Qty: 1 on 02/28/2022 by Juliano Calles MD at [facility] [employer] 11/14/2022 [id number] / / [id number] Insurance [facility] Advance Directives For more information, please contact: [phone] * Full Code (Latest Code Status on File) Date Activated Date Inactivated Comments 02/26/2022 1:50 PM 03/02/2022 7:33 PM Care Teams Rotating Field Assembler Relationship Specialty Start Date End Date Caity Hickman MD PCP - General Family Practice 03/17/20
--- OUTSIDE RECORDS SUMMARY | 2024-09-15 07:28 | XMS_ITS | Continuity of Care Document ---
Author Name [facility] Organization [facility] Care Team Providers Care Snipper Name Role Phone [facility] Unavailable Unavailable Encounters [...] ADM Date DC Date Status Disposition Source [facility] Outpatient Encounter [id number] 02/14 [facility] Connelly
--- OUTSIDE RECORDS SUMMARY | 2024-09-15 07:28 | XMS_ITS | Encounter Summary ---
Author Organization [facility] Address [address] [place] [address] Care Team Providers Care Family And Marriage Counsellor Name Role Phone Sharif Goodwin MD Primary Care Provider [phone]- [phone] Caity Hickman MD Primary Care Provider Encounter Details Date Type Department Care Team ([facility] Contact Info) Description 07/13/2016 Orders Only [facility] ProviderElio MD [address] [place] [address] Social History Tobacco Use Types Packs/Day Years Used Date Smoking Tobacco: Never Assessed Sex and Gender Information Value Date Recorded Sex Assigned at Not on file 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
--- OUTSIDE RECORDS SUMMARY | 2024-09-15 07:28 | XMS_ITS | Clinical Summary ---
Author Organization [facility] [address] Address [address] [place] [address] Care Team Providers Care Composition Mixer Name Role Phone Caity Hickman MD Primary [...] distress 02/26/2022 Coronary artery disease invo lving [place] coronary artery of [place] heart without angina pectoris 02/05/2017 Cardiomyopathy, ischemic 02/05/2017 History of coronary artery stent placement 02/05 ICD (implantable cardioverter-defibrillator) in place 11/26/2016 Overview (08/18/2020): VouchercloudroniSolavei Single ICD, Dx: ICM-DOI 11/23/[address] Sawyer. F-Card. 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 Gender Identity Not on file Sexual Orientation [...] Colon Cancer Screening-Colonoscopy 1955 Depression Screening 1955 Hepatitis C Screening 1955 Prostate Cancer Screening-PSA 1955 DTaP/Tdap/Td Vaccine (1 - Tdap) 1966 Hepatitis B Screening 1973 Pneumococcal vaccine 65+ (1 of 2 - PCV) 1974 Zoster Vaccine (1 of 2) 2005 Abdominal Aortic Aneurysm (A AA) Screen 02/20/2020 Well Visit 65+ 02/20/2020 Fall Risk Assessment 03/02/2023 03/02/2022 Influenza Vaccine (Season Ended) 2025 03/07/2019, 03/28/2018, 03/29/2017 Medical Devices Implanted Type Area Ultimate Hoops Referee Device Identifier Shelf Expiration Date Model / Serial / Lot Icd-11/23/2016 Implanted:2016 by Maribel Sawyer MD (Quantity not on file) ICD Chest Biotronik Inc ICM IPERIA 7 VRT / [id number] / [place] [employer] Juan Synergy Xd Monorail 2.25mm 12mm 144cm Delivery System 1 Access [id number] - [id number] Implanted:Qty: 1 on 02/28/2022 by Juliano Calles MD at [facility] [employer] 08/02/2023 [id number] 220 / / [id number] [employer] [employer] Juan Synergy Xd Monorail 3mm 20mm 144cm Delivery System 1 Access Port [id number] - [id number] Implanted:Qty: 1 on 02/28/2022 by Juliano Calles MD at [facility] [employer] 06/01/2023 [id number] 300 / / [id number] [employer] Stent Coronary De Rx Cocr Xience Skypoint [id number] [id number] - [id number] Implanted:Qty: 1 on 02/28/2022 by Juliano Calles MD at [facility] [employer] 07/31/2023 [id number] [employer] Juan Angio-Seal Vip 6fr Closere Device [id number] - [id number] Implanted:Qty: 1 on 02/28/2022 by Juliano Calles MD at [facility] [employer] 11/14/2022 [id number] / / [id number] Insurance Advance Directives For more information, please contact: [phone] * Full Code (Latest Code Status on File) Date Activated Date Inactivated Comments 02/26/2022 1:50 PM 03/02/2022 7:33 PM Care Teams Composition Mixer Relationship Specialty Start Date End Date Caity Hickman MD PCP - General Family Practice 03/17/20
--- OUTSIDE RECORDS SUMMARY | 2024-09-15 07:28 | XMS_ITS | Clinical Summary ---
Author Organization [facility] Address [address] [place] [address] Care Team Providers Care Saw Sharpener Name Role Phone Caity Hickman MD Primary Care Provider Family History Medical History Relation Comments CAD Father Diabetes Father [place] Father Pancreatic cancer Mother Relation Status Comments [...] Vaccine ( - 2023-2 5 season) 2024 RSV Immunization or 60+ Years (1 [...] complete this topic Insurance [employer] Care Teams Saw Sharpener Relationship Specialty Start Date End Date Caity Hickman MD [address] [facility] [address] [address] [place] [address] PCP - General FAMILY PRACTICE 03/07/22
[2024-09-15 07:38] VITALS: BP 116/80; PULSE 85; RESP 16; TEMP 36.9; O2SAT 100
--- NOTE | 2024-09-15 08:24 | P.HP_ITS ---
History of Present Illness History of Present Illness Consent: Risks, benefits, and alternatives have been discussed and questions answered. Patient agrees to proceed with procedure. Chief complaint: Spondylosis w/o Myelopathy or Radiculopathy, Narrative: Miguelito Castelan is a 69 year old male with chronic, recalcitrant and disabling bilateral lumbosacral back pain secondary to degenerative spondylosis with failure to respond to aggressive conservative measures including PT, oral and topical analgesics, opioid and nonopioid analgesics, rest, time and activity/behavioral modification over the past 1-2 years who presents for diagnostic/prognostic medial branch blocks of the bilateral L3, L4, L5 medial branches/dorsal ramus(#1) addressing the ipsilateral L4-5, L5-S1 facet joints under fluoroscopic guidance and with contrast control. Review of Systems Review of Systems: Patient denies any new infectious, allergic, cardiopulmonary, neurologic or constitutional symptoms or changes in activity tolerance or exercise capacity including new or progressive SOB/NOVOA, peripheral edema, productive cough, dysuria, nausea/vomiting, diarrhea, weight change, fevers/chills/night sweats, new or progressive neurologic deficit, cognitive or mood changes since last seen, except as documented in the HPI. All systems reviewed & are unremarkable except as noted in HPI and below PMFSH Past Medical History Medical History (Updated 08/12/24 @ 19:37 by Aliza Barnes NP) Depression Spondylosis of lumbar spine Chronic joint pain ST elevation myocardial infarction (STEMI) in recovery phase Acute idiopathic gout of right foot PAD (peripheral artery disease) (~02/2022) Lung nodule BPH (benign prostatic hyperplasia) History of [place] (myocardial infarction) Hyperlipemia Hypertension Atherosclerotic heart disease of [place] coronary artery with angina pectoris Surgical History Surgical History History of hemicolectomy History of implantable cardiac defibrillator (ICD) (~2017) History of heart artery stent (~2017) 02/2022 History of lumbar surgery (~1984) Family History Family History Father Family history of diabetes mellitus in first degree relative Family history of coronary artery disease Acute myocardial infarction Mother Family history of pancreatic cancer Social History Social History Smoking packs per day: 1.5 Smoking cigarettes per day: 30.0 Years smoked: 50 Smoking pack-years: 75.00 Smoking status: Unknown if ever smoked Tobacco type: cigarettes and cigars Second hand tobacco smoke exposure: Yes Smoking end date: 06/17/15 Alcohol intake: unknown Drinks per week: 42 Alcohol use details: 6 beers per day with meals Substance use: unknown Substance use type: does not use Lack of Transportation: No Lack of Food: Never True Current Housing: I Have Housing Concerned About Future Housing: No Difficulty Paying Gas/Electric Bills: No Difficulty Paying for Meds: YES Currently Unemployed: YES Education: High School Diploma/GED Difficulty w/ Childcare or Family Care: No Living arrangements: alone Occupation/Education: retired Gender identity (if verbalized by the patient): Male Spiritual care concerns: No Agree to blood products: Yes Meds Home Medications and Allergies Home Medications ?Medication ?Instructions ?Recorded ?Confirmed ?Type aspirin 81 mg tablet,delayed 81 mg PO DAILY 02/09/22 09/15/24 History release ([place] Low Dose Aspirin) diphenhydramine HCl 25 mg tablet 25 mg PO .PRN PRN allergy symptoms 01/10/23 09/15/24 History (Allergy) albuterol sulfate 90 mcg/actuation 1 puff inhalation Q4H PRN 03/13/24 09/15/24 Rx aerosol inhaler shortness of breath or wheezing #8.5 grams losartan 25 mg tablet 25 mg PO DAILY #90 tabs 05/25/24 09/15/24 Rx furosemide 40 mg tablet 40 mg PO QAM #90 tabs 07/28/24 09/15/24 Rx budesonide 160 mcg-glycopyr 9 2 inh inhalation BID #10.7 grams 08/12/24 09/15/24 Rx mcg-formot 4.8 mcg/actuation HFA inhaler (Breztri Aerosphere) pravastatin 40 mg tablet 40 mg PO DAILY 08/12/24 09/15/24 History ezetimibe 10 mg tablet (Zetia) 10 mg PO DAILY #90 tabs 08/17/24 09/15/24 Rx metoprolol succinate 25 mg 25 mg PO DAILY #90 tabs 08/24/24 09/15/24 Rx tablet,extended release 24 hr Allergies Allergy/AdvReac Type Severity Reaction Status Date / Time citalopram AdvReac Mild Diarrhea Verified 09/15/24 07:36 atorvastatin AdvReac joint pain Verified 09/15/24 07:36 and diarrhea Vital Signs Vital Signs - 24 hr 09/15/24 07:38 Temperature 98.4 F Pulse Rate 85 Respiratory Rate 16 Blood Pressure 116/80 Pulse Oximetry 100 Oxygen Delivery Room Air Exam Narrative: The patient's physical exam is essentially unchanged from prior examination on 07/27/2024. Specifically, patient demonstrates normal lung capacity, tidal volume and respiratory rate without wheezes, crackles, rales or rubs. Heart rate and rhythm are regular without murmurs, gallops or rubs. No JVD. Pulses 2+ globally without increasing peripheral edema. AAOx3 with no evidence of confusion, intoxication or altered mental state, NC/AT without acute distress or altered consciousness. Speech, cognition, mood, insight and judgment at baseline and within normal limits. Assessment and Plan Assessment and plan (1) Lumbosacral spondylosis: Code(s): M47.817 - Spondylosis without myelopathy or radiculopathy, lumbosacral region Status: Acute Assessment and Plan: Procedures planned with diagnostic/prognostic medial branch blocks of the bilateral L3, L4, L5 medial branches/dorsal ramus(#1) addressing the bilateral L4-5, L5-S1 facet joints under fluoroscopic guidance and with contrast control. (2) Low back pain: Qualifiers: Chronicity: chronic Back pain laterality: bilateral Sciatica presence: without sciatica Qualified Code(s): M54.50 - Low back pain, unspecified; G89.29 - Other chronic pain Code(s): M54.50 - Low back pain, unspecified Status: Acute (3) Chronic pain: Code(s): G89.29 - Other chronic pain Status: Acute
--- NOTE | 2024-09-15 08:26 | WPDHPUPDATE1 ---
History and Physical Update Update Date/Time: 09/15/24 08:26 History and Physical has been reviewed, including an updated exam of the patient. There are NO changes in the patient's condition. Risks, benefits, and alternatives have been discussed and questions answered. Patient agrees to proceed with procedure.
--- NOTE | 2024-09-15 08:27 | P.OP_ITS ---
Procedure Note - Detailed Date of Procedure 09/15/24 Pre-op Diagnosis Spondylosis w/o Myelopathy or Radiculopathy, Post-op Diagnosis Same Procedure Performed Diagnostic bilateral Lumbar Medial Branch/Dorsal Ramus Blocks at L3, L4, L5 Joss ating the bilateral L4-5, L5-S1 Facet Joints Under Fluoroscopic Guidance and with Contrast Control. (4 levels blocked). Surgeon Braulio Villa MD General Manager Road Production None. Anesthesia Local Description of Procedure INFORMED CONSENT: Risks, benefits and alternatives to the procedure were discussed in detail with the patient who expressed explicit understanding and consent to proceed. Patient was informed verbally and in written form regarding the risks associated with the procedure including the low risk of serious infection, bleeding/bruising, allergic reaction, nerve or organ injury, paralysis, procedural site pain or discomfort, worsening pain and/or mobility, failure to treat and/or disfigurement. The patient expressed explicit understanding and consent to proceed. All materials required for the procedure were available prior to procedure start. Site and side were marked prior to procedure and confirmed in the presence of the patient. PROCEDURE IN DETAIL: The patient was brought to the procedural suite and placed in the prone position. Patient was made comfortable with use of pillows under the head/chest, hips and ankles. Skin overlying the injection site on the affected side(s) was prepared broadly with ChloraPrep applicator and draped in a sterile manner. Aseptic technique was used throughout. The endplates of the vertebral bodies at the site(s) of interest were aligned in the AP view. Ipsilat eral oblique angulation was utilized to optimize visualization of the intersection between the superior articulating process and transverse process at each target site. Local anesthesia was established by infiltration with approximately 5 mL of 1% lidocaine via a 1-1/2 inch 27-gauge needle. A 25-gauge 3.5 inch Quincke spinal needle was advanced until the needle tip contacted periosteum at the target site, right L3. Lateral view was utilized to confirm the appropriate placement of the needle tip just anterior to the facet line and superior to the pedicle. In the Lateral view, 0.25 mL of Omnipaque 300 contrast medium was injected after negative aspiration for CSF, blood or other bodily fluid, showing appropriate extra-articular spread of contrast without evidence of intravascular, foraminal or intrathecal placement. A 0.5 mL solution of 0.5% PF bupivacaine was injected after negative repeat aspiration. Appropriate spread of the injectate was confirmed with washout of previously injected contrast. No parasthesias were elicited. Needle was removed completely intact without difficulty. The same exact procedure was repeated for all remaining levels on the ipsilateral side, right L4, L5 medial branches/dorsal ramus, modified as necessary to accommodate for the new target location with identical findings and results and no evidence of complication. The same exact procedure was repeated for all remaining levels on the contralateral side, left L3, L4, L5 medial branches/dorsal ramus, modified as necessary to accommodate for the new target location with identical findings and results and no evidence of complication. Images were saved and documented in the patient chart. Patient's skin was cleaned and sterile bandage applied. The patient tolerated the procedure well. The patient was transported to the recovery area in stable condition where they were observed for an appropriate amount of time prior to discharge, without evidence of complication. Patient was instructed on the appropriate completion of a pain diary over the next 12-24 hours. The patient was instructed to avoid excessive activity for the next 48 hours, including climbing and frequent use of stairs. Showers only for 48 hours. They were instructed not to drive or operate heavy machinery for 24 hours. They are to monitor for severe headaches, fevers, chills, night sweats, erythema/swelling at the site or any other signs of infection, bleeding/bruising, bowel or bladder changes as well as new pain, weakness or numbness in the upper or lower extremity. Should they notice these changes, they are instructed to call our office immediately or report directly to the nearest Emergency Department if no answer or if after posted office hours. COMPLICATIONS: None COMMENTS: None CONTRAST WASTED: 28.5mL Omnipaque 300. Complications No immediate complications Condition Stable Disposition Same day [facility] Billing Surgery - Charge Forward: Surgery Billing
[2024-09-15 08:58] VITALS: BP 146/65; PULSE 70; RESP 14; O2SAT 98
[2024-09-15 09:02] VITALS: BP 134/60; PULSE 78; RESP 15; O2SAT 99
[2024-09-15 09:06] VITALS: BP 129/66; PULSE 77; RESP 15; O2SAT 99
[2024-09-15 09:09] VITALS: BP 129/66; PULSE 77; RESP 15; O2SAT 98
[2024-09-15] MEDS: BUPivacaine HCL 0.5% 10 ML AMP 5 ML INFILTRATE (09:09)
[2024-09-15] MEDS: LIDOCAINE 1% PF INJ 5 ML VIAL INFILTRATE (09:09)
[2024-09-15 09:13] VITALS: BP 133/69; PULSE 82; RESP 17; O2SAT 100
== END 2024-09-15 09:30 | disposition home or self-care (01) ==
PROVIDERS: PCP Family Medicine; Visit Provider Anesthesiology Pain Medicine
PROC: (CPT 64493; principal; 2024-09-15 08:45)
DX: M47.817 Spondylosis without myelopathy or radiculopathy, lumbosacral region (principal); G89.29 Other chronic pain
CPT/HCPCS: 64493 ×2; 64494 ×2; 64495 ×2; 99199

== ENCOUNTER 2025-06-11 08:00 | Outpatient (CLI) | payer OTHER, SELFPAY ==
--- OUTSIDE RECORDS SUMMARY | 2025-06-11 08:03 | XMS_ITS | Clinical Summary ---
Author Organization [facility] Address [address] [place] [id number] Care Team Providers Care Radiology Equipment Servicer Name Role Phone Caity Hickman MD Primary Care Provider Family History Medical History Relation Comments CAD Father Diabetes Father [place] Father Pancreatic cancer Mother Relation Status Comments [...] Colorectal Cancer Screening Colonoscopy (10 Years) 1955 Hepatitis C 1973 DTaP, Tdap and Td Vaccines ( 1 - Tdap) 1974 Pneumococcal Vaccine: 50+ Ye ars (1 of 2 - PCV) 1974 Zoster Vaccines (1 of 2) 2005 Annual Medicare Wellness Visit 02/20/2020 COVID-19 Vaccine (1 - 2024-2 6 season) 2025 Influenza Adult (#1) 2025 RSV Immunization or 60+ Years (1 - 1-dose 75+ series) 2030 Hepatitis A Vaccines Aged Out No long er eligible based on patient's age to complete this topic Meningococcal B Vaccine Aged Out No l onger eligible based on patient's age to complete this topic Meningococcal Vaccine Aged Out No randee lisandra eligible based on patient's age to complete this topic RSV Immunizations Under 20 Months Aged Out No longer eligible based on patient's age to complete this topic Insurance [employer] Care Teams Radiology Equipment Servicer Relationship Specialty Start Date End Date Caity Hickman MD [address] [facility] [address] [place] [address] PCP - General FAMILY PRACTICE 03/07/22
--- OUTSIDE RECORDS SUMMARY | 2025-06-11 08:03 | XMS_ITS | Encounter Summary ---
Author Organization [facility] Address [address] [place] [address] Care Team Providers Care Client Service Professional Name Role Phone Sharif Goodwin MD Primary Care Provider [phone] Caity Hickman MD Primary Care Provider Emre Ingram MD Unavailable [phone] Encounter Details Date Type Department Care Team ([facility] Contact Info) Description 07/13/2016 Orders Only [facility] ProviderElio MD [address] [place] [id number] Social History Tobacco Use Types Packs/Day Years Used Date Smoking Tobacco: Never Assessed Sex and Gender Information Value Date Recorded Sex Assigned at Not on file 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 Gender Identity Not on file [...] Suspected 02/26/2022 02/26/2022 02/26/2022 11:31 PM CDT COVID: Suspected 06/04/2025 06/04/2025 06/04/2025 2:08 PM 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
--- OUTSIDE RECORDS SUMMARY | 2025-06-11 08:03 | XMS_ITS | Encounter Summary ---
Author Organization [facility] Address [address] [place] [address] Care Team Providers Care Client Experience Manager Name Role Phone Caity Hickman MD Primary Care Provider Encounter Details Date Type Department Care Team (Late st Contact Info) Description 03/08/2022 Abstract [facility], [address] [address] Baldom[place] Social History Tobacco Use [...] on filedocumented in this encounter Care Teams Client Experience Manager Relationship Specialty Start Date End Date Caity Hickman MD [address] [facility] [address] [place] [address] PCP - General FAMILY PRACTICE 03/07/22 documented as of this encounter
--- OUTSIDE RECORDS SUMMARY | 2025-06-11 08:04 | XMS_ITS | Clinical Summary ---
Author Organization [facility] [place] [address] Address [address] [place] [address] Care Team Providers Care Engine House Helper Name Role Phone Caity Hickman MD Primary Care Provider Emre Ingram MD Unavailable [phone] Allergies No known active allergies Medications aspirin (ASPIR-81) 81 mg tablet take 1 tablet by oral route every day 0 0 10/25/19 Active atorvastatin (LIPITOR) 40 mg tablet Take 0.5 tablets (20 mg total) by mouth daily 03/08/20 Active diphenhydrAMINE (BENADRYL) 25 mg capsule Take 1 tablet/capsule (25 mg total) by mouth daily Take three tablets in morning as needed. Active tamsulosin (FLOMAX) 0.4 mg extended release capsuleIndicati ons:benign prostatic hyperplasia with lower urinary tract sx Take 1 capsule (0.4 mg total) by mouth daily Active ezetimibe (ZETIA) 10 mg tabletIndicatio ns:hyperlipidem ia Take 1 tablet (10 mg total) by mouth daily Active metoprolol XL (TOPROL-XL) 25 mg extended release tablet Take 1 tablet (25 mg total) by mouth daily 30 tablet 03/03/20 Active furosemide (LASIX) 40 mg tablet Take 1 tablet (40 mg total) by mouth daily 30 tablet 03/03/20 22 Active sacubitriL-vals benson (ENTRESTO) 24-26 mg tabletIndicatio ns:chronic heart failure Take 1 tablet by mouth 2 (two) times a day 60 tablet 03/02/20 Active acetaminophen 325 mg tablet Take 2 tablets (650 mg total) by mouth every 4 (four) hours as needed for pain or headaches 30 tablet 06/07/20 Active budesonide-form oteroL (SYMBICORT) 160-4.5 mcg/actuation inhaler Inhale 2 puffs 2 (two) times a day Rinse mouth with water after use. Do not swallow. 1 each 06/07/20 Active montelukast (SINGULAIR) 10 mg tablet Take 1 tablet (10 mg total) by mouth nightly 30 tablet 06/07/20 026 Active calcium carbonate (TUMS) 500 mg (200 mg elemental calcium) chewable tablet Take 1 tablet/chew tab (500 mg total) by mouth 2 (two) times a day 60 tablet/chew tab 06/07/20 026 Active empagliflozin (JARDIANCE) 10 mg tabletIndicatio ns:heart failure associated with type 2 diabetes mellitus Take 1 tablet (10 mg total) by mouth daily 30 tablet 06/08/[address] (PROTONIX) 40 mg EC tabletIndicatio ns:Treatment of Non-Bleeding Gastric Disorder Take 1 tablet (40 mg total) by mouth daily 30 tablet 06/07/20 026 Active ticagrelor (BRILINTA) 90 mg tablet Take 1 tablet (90 mg total) by mouth 2 (two) times a day 60 tablet 03/02/20 025 Discontinu ed(Stop Taking at Discharge) predniSONE (DELTASONE) 20 mg tablet Take 2 tablets (40 mg) by mouth daily for 2 doses 4 tablet 06/08/20 25 025 amoxicillin-cla vulanate (AUGMENTIN) 875-125 mg per tabletIndicatio ns:COPD Exacerbation,Pn eumonia, Community Acquired Take 1 tablet (875 mg of amoxicillin total) by mouth 2 (two) times a day for 2 days 4 tablet 06/07/20 25 025 Active Problems Problem Noted Date Diagnosed Date Moderate protein-calorie malnutrition 06/05/2025 Assessment & Plan (06/07/2025 4:33 PM WRAPPER SHEETER): Acute hypoxic respiratory failure- resolving COPD exacerbation Continuing BiPAP intermittently Continue oxygen supplementation, wean down as tolerated. SpO2 goal greater than 88% Continue Symbicort b.i.d. and DuoNebs Continue Entresto Continue IV ceftriaxone and p.o. azithromycin Switch IV Solu-Medrol to p.o. prednisone 40 mg daily Counseled on tobacco use cessation 06/07: Doing much better today, continue to wean down oxygen as tolerated. Continue Symbicort, DuoNebs To complete IV ceftriaxone tomorrow. Heart failure with reduced ejection fraction CAD status post 3 stent Ejection fraction 30% in February 2022 TTE showed severe global left ventricular systolic dysfunction with akinetic inferior wall, septum and apex. Grade 1 diastolic dysfunction also noted. Ejection fraction 15% Continue metoprolol, Entresto, aspirin Continue furosemide 40 mg daily Hyponatremia Improving, 130 today Diuretics were held yesterday, however since patient is still short of breath when laying flat we will resume. Continue to monitor sodium levels 6hrly Hypokalemia Replete potassium as required Continue to monitor renal function panel daily Assessment & Plan (06/06/2025 12:49 PM WRAPPER SHEETER): Acute hypoxic respiratory failure COPD exacerbation Continuing BiPAP intermittently Continue oxygen supplementation, wean down as tolerated. SpO2 goal greater than 88% Continue Symbicort b.i.d. and DuoNebs Continue Entresto Continue IV ceftriaxone and p.o. azithromycin Switch IV Solu-Medrol to p.o. prednisone 40 mg daily Counseled on tobacco use cessation Heart failure with reduced ejection fraction CAD status post 3 stent Ejection fraction 30% in February 2022 Recheck TTE Continue metoprolol, Entresto, aspirin and Brilinta Restart furosemide 40 mg daily Hyponatremia Improving, 130 today Diuretics were held yesterday, however since patient is still short of breath when laying flat we will resume. Monitor sodium levels 6hrly Hypokalemia Replete potassium as required Continue to monitor renal function panel daily Acute on chronic congestive heart failure 2021 COPD exacerbation 03/02/2022 NSTEMI (non-ST elevated myocardial infarction) 0 03/02/2022 Acute respiratory distress 02/26/2022 Coronary artery disease invo lving coquille coronary artery of coquille heart without angina pectoris 02/05/2017 Cardiomyopathy, ischemic 02/05/2017 History of coronary artery stent placement 02/05 ICD (implantable cardioverter-defibrillator) in place 11/26/2016 Overview (08/18/2020): Biotronik Single ICD, Dx: ICM-DOI 11/23/[address] Sawyer. MJF-Card. Biotronik Remote Home Monitoring Q3 mo, Office device checks q1 yr. Device is on ADVISORY for Premature Battery Depletion. Encounters Date Type Department Care Team Description 06/04/2025 1:11 PM WRAPPER SHEETER - 06/08/2025 1:32 PM WRAPPER SHEETER Hospital Encounter [facility] [address] [place] [address] Dennis Hawk MD Masetti, Paolo, MD Nations, DO Emir Mitchell Jelena, MD Akuse, MD Clayton Roberts Nazanin, MD COPD exacerbation (HCC) (Primary Dx); Acute respiratory distress; Hyponatremia Discharge Disposition: Discharge to home or self care 06/04/2025 12:57 PM WRAPPER SHEETER - 06/04/2025 11:59 PM WRAPPER SHEETER Hospital Encounter [facility] Discharge Disposition: Discharge to home or self care from Last 3 Months Surgical History Surgery Date Site/Laterality Comments CARDIAC [...] medical care, and heating? Patient declined 03/01/2022 Social Connection and Isolation Panel Answer Date Recorded In a typical week, how many times do you talk on the phone with family, friends, or neighbors? More than three times a week 06/07/2025 How often do you get togethe r with friends or relatives? More than three times a week 06/07/2025 How often do you attend chur ch or latter-day services? Never 06/07/2025 Do you belong to any clubs o r organizations such as anabaptist groups, unions, fraternal or athletic groups, or school groups? No 06/07/2025 How often do you attend meet ings of the clubs or organizations you belong to? Never 06/07/2025 Are you , , di vorced, , never , or living with a partner? 06/07/2025 Overall Financial Resource Strain (CARDIA) Answe r Date Recorded How hard is it for you to pa y for the very basics like food, housing, medical care, and heating? Not very hard 06/07/2025 Hunger Vital Sign Answer Date Recorded Within the past 12 months, y ou worried that your food would run out before you got the money to buy more. Never true 06/07/20 25 Within the past 12 months, t he food you bought just didn't last and you didn't have money to get more. Never true 06/07/2025 PRAPARE - Transportation Answer Date Re corded In the past 12 months, has l ack of transportation kept you from medical appointments or from getting medications? No 06/07/2025 Lack of Transportation (Non-Medical) Not on file 06/07/2025 Housing Stability Vital Sign Answer Nick e Recorded In the last 12 months, was t here a time when you were not able to pay the mortgage or rent on time? No 06/07/2025 In the past 12 months, how m any times have you moved where you were living? 0 06/07/2025 At any time in the past 12 m [facility], were you homeless or living in a longterm (including now)? No 06/07/2025 [facility] Utilities Answer Date Recorded In the past 12 months has th e electric, gas, oil, or water company threatened to shut off services in your home? No 06/07/2025 Personal Safety Answer Date Recorded Have you ever been in or are you currently in a harmful physical or emotional relationship or is someone making you feel afraid or unsafe? Denies 06/04/2025 Sex and Gender Information Value Date Recorded Sex Assigned at Not on file Legal Sex Male 6:27 PM WRAPPER SHEETER Gender Identity Not on file Sexual Orientation Not on file Last Filed Vital Signs Vital Sign Reading Time Taken Comments Blood Pressure 112/64 06/08/2025 7:00 AM WRAPPER SHEETER Pulse 80 06/08/2025 10:00 AM WRAPPER SHEETER Temperature 36.1 C (97 F) 06/08/2025 7:00 AM WRAPPER SHEETER Respiratory Rate 16 06/08/2025 9:17 AM WRAPPER SHEETER Oxygen Saturation 99% 06/08/2025 9:08 AM WRAPPER SHEETER Inhaled Oxygen Concentration - - Weight 67.2 kg (148 lb 2.4 oz) 06/04/2025 5:22 P M WRAPPER SHEETER Height 179.1 cm (5' 10.5) 06/04/2025 5:22 PM CS T Body Mass Index 20.96 06/04/2025 5:22 PM WRAPPER SHEETER Plan of Treatment Health Maintenance Due Date Last Done Comments Colon Cancer Screening-Colonoscopy 1955 Depression Screening 1955 Hepatitis C Screening 1955 DTaP/Tdap/Td Vaccine (1 - Tdap) 1966 Hepatitis B Screening 1973 Pneumococcal vaccine 65+ (1 of 2 - PCV) 1974 Zoster Vaccine (1 of 2) 2005 Abdominal Aortic Aneurysm (A AA) Screen 02/20/2020 Well Visit 65+ 02/20/2020 Influenza Vaccine (#1) 2025 0, 03/07/2019, 03/28/2018, Additional history exists Fall Risk Assessment 06/08/2026 06/08/2025 Medical Devices Implanted Type Area Health And Safety Director Device Identifier Shelf Expiration Date Model / Serial / Lot Icd-11/23/2016 Implanted:2016 by Maribel Sawyer MD (Quantity not on file) ICD Chest [employer] ICM IPERIA 7 VRT / [id number] / ZettaCore Synergy Xd Monorail 2.25mm 12mm 144cm Delivery System 1 Access [id number] - [id number] Implanted:Qty: 1 on 02/28/2022 by Juliano Calles MD at [facility] ZettaCore 08/02/2023 [id number] / / [id number] [employer] Juan Synergy Xd Monorail 3mm 20mm 144cm Delivery System 1 Access Port [id number] - [id number] Implanted:Qty: 1 on 02/28/2022 by Juliano Calles MD at [facility] stylemarks Juan 06/01/2023 [id number] / / [id number] [employer] Stent Coronary De Rx Cocr Xience Skypoint [id number] - [id number] Implanted:Qty: 1 on 02/28/2022 by Juliano Calles MD at [facility] [employer] 07/31/2023 [id number] Macoscope Angio-Seal Vip 6fr Closere Device [id number] - [id number] Implanted:Qty: 1 on 02/28/2022 by Juliano Calles MD at [facility] Macoscope 11/14/2022 [id number] / / [id number] Procedures Procedure Name Priority Date/Time Associated Diagnosis Comments POCT GLUCOSE DEVICE Routine 06/08/2025 7 :50 AM WRAPPER SHEETER SODIUM LEVEL Timed 06/08/2025 5:41 AM WRAPPER SHEETER POCT GLUCOSE DEVICE Routine 06/08/2025 1 :56 AM WRAPPER SHEETER EGFR Routine 06/08/2025 12:27 AM WRAPPER SHEETER COMPREHENSIVE METABOLIC PANEL Routine 06/08/2025 12:27 AM WRAPPER SHEETER POCT GLUCOSE DEVICE Routine 06/07/2025 8 :33 PM WRAPPER SHEETER SODIUM LEVEL Timed 06/07/2025 5:47 PM WRAPPER SHEETER POCT GLUCOSE DEVICE Routine 06/07/2025 5 :05 PM WRAPPER SHEETER SODIUM LEVEL Timed 06/07/2025 12:06 PM WRAPPER SHEETER POCT GLUCOSE DEVICE Routine 06/07/2025 1 2:01 PM WRAPPER SHEETER TRANSTHORACIC ECHO (TTE) COMPLETE W DOPPLER/CF W CONTRAST Routine 06/07/2025 11:30 AM WRAPPER SHEETER POCT GLUCOSE DEVICE Routine 06/07/2025 7 :50 AM WRAPPER SHEETER EGFR Routine 06/07/2025 4:43 AM WRAPPER SHEETER LIPID PANEL Routine 06/07/2025 4:43 AM WRAPPER SHEETER MAGNESIUM Timed 06/07/2025 4:43 AM WRAPPER SHEETER COMPREHENSIVE METABOLIC PANEL Routine 06/07/2025 4:43 AM WRAPPER SHEETER POCT GLUCOSE DEVICE Routine 06/07/2025 1 :34 AM WRAPPER SHEETER SODIUM LEVEL Timed 06/07/2025 12:07 AM WRAPPER SHEETER POCT GLUCOSE DEVICE Routine 06/06/2025 8 :41 PM WRAPPER SHEETER SODIUM LEVEL Timed 06/06/2025 6:06 PM WRAPPER SHEETER POCT GLUCOSE DEVICE Routine 06/06/2025 4 :57 PM WRAPPER SHEETER POCT GLUCOSE DEVICE Routine 06/06/2025 1 2:11 PM WRAPPER SHEETER SODIUM LEVEL Timed 06/06/2025 12:08 PM WRAPPER SHEETER POCT GLUCOSE DEVICE Routine 06/06/2025 8 :16 AM WRAPPER SHEETER SODIUM LEVEL Timed 06/06/2025 6:23 AM WRAPPER SHEETER POCT GLUCOSE DEVICE Routine 06/06/2025 1 :37 AM WRAPPER SHEETER EGFR Routine 06/06/2025 12:05 AM WRAPPER SHEETER COMPREHENSIVE METABOLIC PANEL Routine 06/06/2025 12:05 AM WRAPPER SHEETER POCT GLUCOSE DEVICE Routine 06/05/2025 9 :14 PM WRAPPER SHEETER SODIUM LEVEL Timed 06/05/2025 5:40 PM WRAPPER SHEETER SODIUM, URINE, RANDOM Routine 06/05/2025 5:40 PM WRAPPER SHEETER OSMOLALITY, URINE Routine 06/05/2025 5:4 0 PM WRAPPER SHEETER OSMOLALITY, BLOOD Add-On 06/05/2025 5:4 0 PM WRAPPER SHEETER POCT GLUCOSE DEVICE Routine 06/05/2025 5 :25 PM WRAPPER SHEETER AEROBIC CULTURE AND GRAM STAIN Routine 06/05/2025 5:35 AM WRAPPER SHEETER EGFR Routine 06/05/2025 4:41 AM WRAPPER SHEETER CBC WITHOUT DIFFERENTIAL Routine 06/05/2025 4:41 AM WRAPPER SHEETER COMPREHENSIVE METABOLIC PANEL Routine 06/05/2025 4:41 AM WRAPPER SHEETER TROPONIN T HIGH-SENSITIVITY SERIES (BASELINE, 2HR, 4HR, 6HR) Routine 06/04/2025 9:58 PM WRAPPER SHEETER DRUGS OF ABUSE SCREEN, URINE WITHOUT CONFIRMATION STAT 06/04/2025 9:58 PM WRAPPER SHEETER URINALYSIS AND REFLEX TO MICROSCOPIC AND CULTURE STAT 06/04/2025 9:58 PM WRAPPER SHEETER ECG 12-LEAD Routine 06/04/2025 8:56 PM WRAPPER SHEETER PROCALCITONIN Routine 06/04/2025 7:27 PM WRAPPER SHEETER TROPONIN T HIGH-SENSITIVITY 6-HOUR Timed 06/04/2025 7:27 PM WRAPPER SHEETER MRSA ONLY (STAPHYLOCOCCUS AUREUS) PCR Routine 06/04/2025 7:27 PM WRAPPER SHEETER TROPONIN T HIGH-SENSITIVITY 4-HR Timed 06/04/2025 5:04 PM WRAPPER SHEETER BLOOD GAS, VENOUS STAT 06/04/2025 4:0 5 PM WRAPPER SHEETER TROPONIN T HIGH-SENSITIVITY 2-HOUR Timed 06/04/2025 3:29 PM WRAPPER SHEETER BLOOD GAS, VENOUS STAT 06/04/2025 2:3 3 PM WRAPPER SHEETER XR CHEST 1 VIEW ED 06/04/2025 1:37 PM WRAPPER SHEETER PRO B-TYPE NATRIURETIC PEPTIDE STAT 06/04/2025 1:18 PM WRAPPER SHEETER INFLUENZA A/B, RSV, AND COVID-19 PCR STAT 06/04/2025 1:18 PM WRAPPER SHEETER ECG 12-LEAD STAT 06/04/2025 1:17 PM WRAPPER SHEETER EGFR STAT 06/04/2025 1:17 PM WRAPPER SHEETER DIFFERENTIAL AUTO STAT 06/04/2025 1:1 7 PM WRAPPER SHEETER BLOOD GAS, VENOUS STAT 06/04/2025 1:1 7 PM WRAPPER SHEETER TROPONIN T HIGH-SENSITIVITY SERIES (BASELINE, 2HR, 4HR, 6HR) STAT 06/04/2025 1:17 PM WRAPPER SHEETER CBC WITH AUTO DIFFERENTIAL STAT 06/04/2025 1:17 PM WRAPPER SHEETER COMPREHENSIVE METABOLIC PANEL STAT 06/04/2025 1:17 PM WRAPPER SHEETER from Last 3 Months Results * POCT glucose (06/08/2025 7:50 AM WRAPPER SHEETER) [facility] Signature Glucose, POC 89 70 - 199 mg/dL Blood 06/08/2025 7:50 AM WRAPPER SHEETER 06/08/2025 7:50 AM WRAPPER SHEETER us Adriana Arnold MD LAB POCT ORDERABLES - DEV ICE Final Result [facility] ([place]) 1 [facility] [place] [address] * (ABNORMAL) Sodium level (06/08/2025 5:41 AM WRAPPER SHEETER) Pathologist [facility] Sodium 130(L) 135 - 145 mmol/L Blood 06/08/2025 5:41 AM WRAPPER SHEETER 06/08/2025 5:51 AM WRAPPER SHEETER us Sheldon Chaudhry DO LAB BLOOD ORDERABLES F inal Result Performing Organization Address City/[facility]/ZIP Co de Phone Number [facility] ([place]) 1 [facility] [place] [address] * POCT glucose (06/08/2025 1:56 AM WRAPPER SHEETER) Pathologist [facility] Glucose, POC 88 70 - 199 mg/dL Blood 06/08/2025 1:56 AM WRAPPER SHEETER 06/08/2025 1:56 AM WRAPPER SHEETER Bryanna Strickland MD LAB POCT ORDERABLES - DEVICE Final Result Performing Organization Address City/[facility]/ZIP Co de Phone Number [facility] ([place]) 1 [facility] [place] [address] * eGFR (06/08/2025 12:27 AM WRAPPER SHEETER) eGFR >90 >=60 mL/min/1. 73 m2 Comment: Interpretive Data Reference Interval Normal >/= 90 mL/min/1.73m2 Mildly decreased* 60 - 89 mL/min/1.73m2 Mildly to moderately decreased 45 - 59 mL/min/1.73m2 Moderately to severely decreased 30 - 44 mL/min/1.73m2 Severely decreased 15 - 29 mL/min/1.73m2 Kidney Failure < 15 mL/min/1.73m2 *Relative to young adult level Estimated glomerular filtration rate is determined by the 2020 CKD-EPI equation recommended by the National Kidney Foundation (A Unifying Approach to GFR Estimation: Recommendations of the NKF-ASK Task Force on Reassessing the Inclusion of Race in Diagnosing Kidney Disease, JASN 2020). The CKD-EPI equation should not be used for patients with unstable renal function and has not been validated in children and those over 70. Current interpretive data was last reviewed 2021. Blood 06/08/2025 12:2 7 AM WRAPPER SHEETER 06/08/2025 12:43 AM WRAPPER SHEETER Sheldon Chaudhry DO LAB BLOOD ORDERABLES F inal Result [facility] ([place]) 1 [facility] [place] [address] * (ABNORMAL) Comprehensive metabolic panel (06/08/2025 12:27 AM WRAPPER SHEETER) Sodium 129(L) 135 - 145 mmol/L Potassium, pl 3.9 3.3 - 4.9 mmol/L [facility] ([place]) Chloride 95(L) 97 - 110 mmol/L [facility] ([place]) CO2 22 22 - 32 mmol/L [facility] ([place]) Anion gap 12 2 - 15 mmol/L [facility] ([place]) BUN 22 6 - 25 mg/dL [facility] ([place]) Creatinine 0.75(L) 0.80 - 1.30 mg/dL [facility] ([place]) Glucose 102 70 - 199 mg/dL [facility] ([place]) Comment: Interpretive Data Fasting glucose >/= 126 mg/dl is diagnostic for diabetes. Fasting is defined as no caloric intake for at least 8 hours. Fasting glucose between 100 mg/dl to 125 mg/dl is diagnostic of prediabetes. In a patient with classic symptoms of hyperglycemia or hyperglycemic crisis, a random glucose >/= 200 mg/dl is diagnostic for diabetes. In the absence of unequivocal hyperglycemia, results should be confirmed by repeat testing. The classification and Diagnosis of Diabetes Diabetes Care 202; 46: S19-S40. Current interpretive data was last revised 2022. Calcium 9.1 8.5 - 10.3 mg/dL [facility] ([place]) Bilirubin, total 0.9 0.1 - 1.2 mg/dL [facility] ([place]) Protein, pl 6.1(L) 6.5 - 8.5 g/dL [facility] ([place]) Albumin 4.0 3.5 - 5.0 g/dL [facility] ([place]) Alk phos 34(L) 40 - 130 Units/L [facility] ([place]) ALT 59(H) 7 - 55 Units/L [facility] ([place]) AST 41 10 - 50 Units/L [facility] ([place]) Comment:Hemolysis present. R esults may be affected. Blood 06/08/2025 12:2 7 AM WRAPPER SHEETER 06/08/2025 12:43 AM WRAPPER SHEETER Sheldon Chaudhry DO LAB BLOOD ORDERABLES F inal Result [facility] ([place]) 1 [facility] [place] [address] * POCT glucose (06/07/2025 8:33 PM WRAPPER SHEETER) Glucose, POC 108 70 - 199 mg/dL Blood 06/07/2025 8:33 PM WRAPPER SHEETER 06/07/2025 8:33 PM WRAPPER SHEETER Bryanna Strickland MD LAB POCT ORDERABLES - DEVICE Final Result [facility] ([place]) 1 [facility] [place] [address] * (ABNORMAL) Sodium level (06/07/2025 5:47 PM WRAPPER SHEETER) Sodium 131(L) 135 - 145 mmol/L Blood 06/07/2025 5:47 PM WRAPPER SHEETER 06/07/2025 5:51 PM WRAPPER SHEETER Sheldon Chaudhry DO LAB BLOOD ORDERABLES F inal Result [facility] ([place]) 1 [facility] [place] [address] * POCT glucose (06/07/2025 5:05 PM WRAPPER SHEETER) Glucose, POC 131 70 - 199 mg/dL Blood 06/07/2025 5:05 PM WRAPPER SHEETER 06/07/2025 5:05 PM WRAPPER SHEETER Bryanna Strickland MD LAB POCT ORDERABLES - DEVICE Final Result Performing Organization Address City/[facility]/ZIP Co de Phone Number [facility] ([place]) 1 [facility] [place] [address] * (ABNORMAL) Sodium level (06/07/2025 12:06 PM WRAPPER SHEETER) Sodium 130(L) 135 - 145 mmol/L Blood 06/07/2025 12:0 6 PM WRAPPER SHEETER 06/07/2025 12:08 PM WRAPPER SHEETER Sheldon Chaudhry DO LAB BLOOD ORDERABLES F inal Result [facility] ([place]) 1 [facility] [place] [address] * POCT glucose (06/07/2025 12:01 PM WRAPPER SHEETER) Glucose, POC 97 70 - 199 mg/dL Blood 06/07/2025 12:0 1 PM WRAPPER SHEETER 06/07/2025 12:01 PM WRAPPER SHEETER Bryanna Strickland MD LAB POCT ORDERABLES - DEVICE Final Result [facility] ([place]) 1 [facility] [place] [address] * TRANSTHORACIC ECHO (TTE) COMPLETE W DOPPLER/CF W CONTRAST (06/07/2025 11:30 AM WRAPPER SHEETER) Estimated EF 15 % CONS SCIMAGE Anatomical Region Laterality Modality Ultrasound 06/07/2025 11:1 0 AM WRAPPER SHEETER Narrative 06/07/2025 2:18 PM WRAPPER SHEETER [address] [address] Echocardiogram Report Patient Name: MIGUELITO CASTELAN J : 1955 Study Date: 06/07/2025 11:10:00 AM Sex: M Tech: GAIL Location: [id number] Ref Provider: BRYANNA STRICKLAND Height(Cm): BSA: Weight(Kg): Quality: Definity contrast agent used to enhance endocardial border definition Order Provider: BRYANNA STRICKLAND PROCEDURES: Echocardiographic Report: Transthoracic echocardiogram with complete 2D, M-Mode, color Doppler examination and contrast. INDICATIONS: Heart Failure. MEASUREMENTS: 2D/MM Value Range Doppler Value Range EF Teich MM 26.8 % [ 52.0 - 72.0 ] CHIDI Vmax 2.82 cm2 Estimated EF 15 % AV Mean PG 1 mmHg LVIDd MM 7.32 cm [ 4.20 - 5.80 ] AV Peak Bry 0.78 m/s [ 1.00 - 1.70 ] LVIDs MM 6.38 cm [ 2.50 - 4.00 ] AV VTI 14.16 cm LVPWd MM 1.17 cm [ 0.60 - 1.00 ] LVOT Diam 2.09 cm IVSd MM 0.88 cm [ 0.60 - 1.00 ] LVOT Peak Bry 0.64 m/s [ 0.70 - 1.10 ] LA Dimension MM 3.92 cm [ 3.00 - 4.00 ] LVOT VTI 11.54 cm AoR Diam MM 3.47 cm [ 3.10 - 3.70 ] MV E Peak Bry 0.36 m/s [ 0.60 - 1.30 ] ACS MM 1.60 cm [ 1.50 - 2.60 ] MV A Peak Bry 0.90 m/s [ 1.00 - 1.20 ] MV Mean PG 1 mmHg MV PHT 61 msec [ 20 - 100 ] MVA 3.60 MV Decel Time 211 msec [ 104 - 258 ] PV Peak Bry 0.48 m/s [ 0.40 - 0.80 ] TR Peak Bry 1.09 m/s [ 1.00 - 2.80 ] TR Peak PG 5 mmHg RVSP 13.00 mmHg [ 10.00 - 36.00 ] E` 0.03 m/s E/E` 10.81 [ <= 10.00 ] PA Pressure 13.00 mmHg [ 10.00 - 36.00 ] 2D/MM Value Range Doppler Value Range - FINDINGS: Atrial Septum: Normal atrial septum. Left Ventricle: Normal left ventricular wall thickness. Severe global left ventricular systolic dysfunction. Impaired diastolic relaxation Grade I. Ejection Fraction is estimated to be 15 %. Left Atrium: The left atrium is normal in size. Right Ventricle: Linear artifact in right ventricle suggestive of catheter(s), pacemaker lead(s), or ICD lead(s). Right Atrium: The right atrium is normal in size. Aortic Valve: Normal structure of the aortic valve. Mitral Valve: Mild mitral valve regurgitation. Pulmonic Valve: Normal structure of the pulmonic valve. Tricuspid Valve: Normal right ventricular systolic pressure. Estimated peak RVSP is 20 mmHg. Mild tricuspid regurgitation. Pericardium: Normal pericardium with no significant pericardial effusion. Aorta: Normal aortic root. Sinus of Valsalva is normal. Aortic arch is normal. Descending aorta is normal. IVC: Normal size and normal respiratory collapse consistent with normal right atrial pressure (<5 mmHg). Pulmonary Artery: Normal pulmonary artery size. CONCLUSIONS: Normal left ventricular wall thickness. Severe global left ventricular systolic dysfunction akinetic inferior wall, septum and apex. Impaired diastolic relaxation Grade I. Ejection Fraction is estimated to be 15 %. Linear artifact in right ventricle suggestive of ICD lead(s). Mild mitral valve regurgitation. Normal right ventricular systolic pressure. Estimated peak RVSP is 20 mmHg. Mild tricuspid regurgitation. No pericardial effusion. Electronically Signed By: Paul Payne MD 06/07/2025 2:17:40 PM WRAPPER SHEETER Procedure Note Paul Payne MD - 06/07/[address] [address] Echocardiogram Report Patient Name: MIGUELITO CASTELAN J : 1955 Study Date: 06/07/2025 11:10:00 AM Sex: M Tech: Location: [id number] Ref Provider: BRYANNA STRICKLAND Height(Cm): BSA: Weight(Kg): Quality: Definity contrast agent used to enhance endocardial borderdefinition Order Provider: BRYANNA STRICKLAND PROCEDURES: Echocardiographic Report: Transthoracic echocardiogram with complete 2D, M-Mode, color Dopplerexamination and contrast. INDICATIONS: Heart Failure. MEASUREMENTS: 2D/MM Value Range Doppler ValueRange EF Teich MM 26.8 % [ 52.0 - 72.0 ] CHIDI Vmax 2.82cm2 Estimated EF 15 % AV Mean PG 1 mmHg LVIDd MM 7.32 cm [ 4.20 - 5.80 ] AV Peak Bry 0.78 m/s[ 1.00 - 1.70 ] LVIDs MM 6.38 cm [ 2.50 - 4.00 ] AV VTI 14.16cm LVPWd MM 1.17 cm [ 0.60 - 1.00 ] LVOT Diam 2.09cm IVSd MM 0.88 cm [ 0.60 - 1.00 ] LVOT Peak Bry 0.64 m/s[ 0.70 - 1.10 ] LA Dimension MM 3.92 cm [ 3.00 - 4.00 ] LVOT VTI 11.54cm AoR Diam MM 3.47 cm [ 3.10 - 3.70 ] MV E Peak Bry 0.36 m/s[ 0.60 - 1.30 ] ACS MM 1.60 cm [ 1.50 - 2.60 ] MV A Peak Bry 0.90 m/s[ 1.00 - 1.20 ] MV Mean PG 1 mmHg MV PHT 61 msec [ 20 - 100 ] MVA 3.60 MV Decel Time 211 msec [ 104 - 258 ] PV Peak Bry 0.48 m/s [ 0.40 - 0.80 ] TR Peak Bry 1.09 m/s [ 1.00 - 2.80 ] TR Peak PG 5 mmHg RVSP 13.00 mmHg [ 10.00 - 36.00 ] E` 0.03 m/s E/E` 10.81 [ <= 10.00 ] PA Pressure 13.00 mmHg [ 10.00 - 36.00 ] 2D/MM Value Range Doppler ValueRange - FINDINGS: Atrial Septum: Normal atrial septum. Left Ventricle: Normal left ventricular wall thickness. Severe global left ventricularsystolic dysfunction. Impaired diastolic relaxation Grade I. Ejection Fraction isestimated to be 15 %. Left Atrium: The left atrium is normal in size. Right Ventricle: Linear artifact in right ventricle suggestive of catheter(s), pacemakerlead(s), or ICD lead(s). Right Atrium: The right atrium is normal in size. Aortic Valve: Normal structure of the aortic valve. Mitral Valve: Mild mitral valve regurgitation. Pulmonic Valve: Normal structure of the pulmonic valve. Tricuspid Valve: Normal right ventricular systolic pressure. Estimated peak RVSP is 20mmHg. Mild tricuspid regurgitation. Pericardium: Normal pericardium with no significant pericardial effusion. Aorta: Normal aortic root. Sinus of Valsalva is normal. Aortic arch is normal.Descending aorta is normal. IVC: Normal size and normal respiratory collapse consistent with normal rightatrial pressure (<5 mmHg). Pulmonary Artery: Normal pulmonary artery size. CONCLUSIONS: Normal left ventricular wall thickness. Severe global left ventricularsystolic dysfunction akinetic inferior wall, septum and apex. Impaired diastolicrelaxation Grade I. Ejection Fraction is estimated to be 15 %. Linear artifact in right ventricle suggestive of ICD lead(s). Mild mitral valve regurgitation. Normal right ventricular systolic pressure. Estimated peak RVSP is 20mmHg. Mild tricuspid regurgitation. No pericardial effusion. Electronically Signed By: Paul Payne MD 06/07/2025 2:17:40 PM WRAPPER SHEETER Bryanna Strickland MD CV ECHO PROCEDURES Fi nal Result * POCT glucose (06/07/2025 7:50 AM WRAPPER SHEETER) Glucose, POC 93 70 - 199 mg/dL Blood 06/07/2025 7:50 AM WRAPPER SHEETER 06/07/2025 7:50 AM WRAPPER SHEETER Bryanna Strickland MD LAB POCT ORDERABLES - DEVICE Final Result [facility] [place]) 1 [facility] Department [place] [address] * eGFR (06/07/2025 4:43 AM WRAPPER SHEETER) eGFR >90 >=60 mL/min/1. 73 m2 Comment: Interpretive Data Reference Interval Normal >/= 90 mL/min/1.73m2 Mildly decreased* 60 - 89 mL/min/1.73m2 Mildly to moderately decreased 45 - 59 mL/min/1.73m2 Moderately to severely decreased 30 - 44 mL/min/1.73m2 Severely decreased 15 - 29 mL/min/1.73m2 Kidney Failure < 15 mL/min/1.73m2 *Relative to young adult level Estimated glomerular filtration rate is determined by the 2020 CKD-EPI equation recommended by the National Kidney Foundation (A Unifying Approach to GFR Estimation: Recommendations of the NKF-ASK Task Force on Reassessing the Inclusion of Race in Diagnosing Kidney Disease, JASN 2020). The CKD-EPI equation should not be used for patients with unstable renal function and has not been validated in children and those over 70. Current interpretive data was last reviewed 2021. Blood 06/07/2025 4:43 AM WRAPPER SHEETER 06/07/2025 6:06 AM WRAPPER SHEETER Sheldon Chaudhry DO LAB BLOOD ORDERABLES F inal Result Performing Organization Address City/[facility] Co de Phone Number ZEENAT [facility] ([place]) 1 [facility] [place] [address] * Magnesium (06/07/2025 4:43 AM WRAPPER SHEETER) Magnesium 2.3 1.4 - 2.5 mg/dL Blood 06/07/2025 4:43 AM WRAPPER SHEETER 06/07/2025 6:06 AM WRAPPER SHEETER Sheldon Chaudhry DO LAB BLOOD ORDERABLES F inal Result Performing Organization Address [facility] de Phone Number ZE[facility]AT [facility] ([place]) [address] [place] [address] * Lipid panel (06/07/2025 4:43 AM WRAPPER SHEETER) Cholesterol 163 30 - 199 mg/dL Comment: Interpretive Data Ages < or = 19 years Acceptable: <170 mg/dL Borderline high: 170-199 mg/dL High: >or= 200 mg/dL Ages > or = 20 years Desirable: <200 mg/dL Borderline high: 200-239 mg/dL High: >or= 240 mg/dL Literature References: 1. Expert Panel on Integrated Guidelines for Cardiovascular Health and Risk Reduction in Children and Adolescents. Pediatrics 2011;128:S213 2. NCEP Expert Panel. Circulation 2004;110:227 Current Interpretive Data was last revised on 2018. Triglycerides 113 <=149 mg/dL [facility] ([place]) Comment: Interpretive Data Ages < or = 9 years Acceptable: <75 mg/dL Borderline high: 75-99 mg/dL High: >or= 100 mg/dL Ages 10 to 20 years Acceptable: <90 mg/dL Borderline high: 90-129 mg/dL High: >or= 130 mg/dL Ages > or = 20 years Desirable: <150 mg/dL Borderline high: 150-199 mg/dL High: 200-499 mg/dL Very high: >or= 499 mg/dL Literature References: 1. Expert Panel on Integrated Guidelines for Cardiovascular Health and Risk Reduction in Children and Adolescents. Pediatrics 2011;128:S213 2. NCEP Expert Panel. Circulation 2004;110:227 Current Interpretive Data was last revised on 2018. HDL 52 >=40 mg/dL ZEENAT [facility] ([place]) Comment: Interpretive Data Ages < or = 19 years Acceptable: >45 mg/dL Borderline low: 40-45 mg/dL Low: <40 mg/dL Ages > or = 20 years Desirable: >or= 60 mg/dL Low: <40 mg/dL Literature References: 1. Expert Panel on Integrated Guidelines for Cardiovascular Health and Risk Reduction in Children and Adolescents. Pediatrics 2011;128:S213 2. NCEP Expert Panel. Circulation 2004;110:227 Current Interpretive Data was last revised on 2018. LDL, calculated 91 <=129 mg/dL [facility]AT [facility] ([place]) Comment: Interpretive Data Ages < or = 19 years Acceptable: <110 mg/dL Borderline high: 110-129 mg/dL High: >or= 130 mg/dL Ages > or = 20 years Optimal: <100 mg/dL Near optimal: 100-129 mg/dL Borderline high: 130-159 mg/dL High: >160 mg/dL Calculated using the Dennis LDL-C estimating equation. This equation was implemented on 2024. Prior to this date LDL-C was estimated using the Friedewald equation. Literature References: 1. Expert Panel on Integrated Guidelines for Cardiovascular Health and Risk Reduction in Children and Adolescents. Pediatrics 2011;128:S213 2. NCEP Expert Panel. Circulation 2004;110:227 3. Dennis Merino et al. ALICJA Cardiol. 2020 October 15;5(5):540-548. doi: 10.1001/jamacardio.2020.0013 Current Interpretive Data was last revised on 2024. Non-HDL Cholesterol 111 mg/dL [facility] ([place]) Comment: Interpretive Data Ages < or = 19 years Acceptable: <120 mg/dL Borderline high: 120-144 mg/dL High: >145 mg/dL Ages > or = 20 years When triglycerides are >200 mg/dL, Non-HDL cholesterol is a secondary target of therapy with treatment goals that are 30 mg/dL greater than the LDL cholesterol target. Literature References: 1. Expert Panel on Integrated Guidelines for Cardiovascular Health and Risk Reduction in Children and Adolescents. Pediatrics 2011;128:S213 2. NCEP Expert Panel. Circulation 2004;110:227 Current Interpretive Data was last revised on 2018. Chol/HDL ratio 3 [facility] ([place]) Blood 06/07/2025 4:43 AM WRAPPER SHEETER 06/07/2025 6:06 AM WRAPPER SHEETER us Emre Ingram MD LAB BLOOD ORDERABLES Final Re sult [facility] ([place]) 1 [facility] Department [place] [address] * (ABNORMAL) Comprehensive metabolic panel (06/07/2025 4:43 AM WRAPPER SHEETER) Sodium 131(L) 135 - 145 mmol/L Potassium, pl 3.5 3.3 - 4.9 mmol/L [facility] ([place]) Chloride 97 97 - 110 mmol/L [facility] ([place]) CO2 23 22 - 32 mmol/L [facility] ([place]) Anion gap 11 2 - 15 mmol/L [facility] ([place]) BUN 19 6 - 25 mg/dL [facility] ([place]) Creatinine 0.73(L) 0.80 - 1.30 mg/dL [facility] ([place]) Glucose 104 70 - 199 mg/dL [facility] ([place]) Comment: Interpretive Data Fasting glucose >/= 126 mg/dl is diagnostic for diabetes. Fasting is defined as no caloric intake for at least 8 hours. Fasting glucose between 100 mg/dl to 125 mg/dl is diagnostic of prediabetes. In a patient with classic symptoms of hyperglycemia or hyperglycemic crisis, a random glucose >/= 200 mg/dl is diagnostic for diabetes. In the absence of unequivocal hyperglycemia, results should be confirmed by repeat testing. The classification and Diagnosis of Diabetes Diabetes Care 2021; 46: S19-S40. Current interpretive data was last revised 2022. Calcium 9.0 8.5 - 10.3 mg/dL [facility] ([place]) Bilirubin, total 0.6 0.1 - 1.2 mg/dL [facility] ([place]) Protein, pl 6.2(L) 6.5 - 8.5 g/dL [facility] ([place]) Albumin 4.1 3.5 - 5.0 g/dL [facility] ([place]) Alk phos 32(L) 40 - 130 Units/L [facility] ([place]) ALT 30 7 - 55 Units/L [facility] ([place]) AST 31 10 - 50 Units/L [facility] ([place]) Blood 06/07/2025 4:43 AM WRAPPER SHEETER 06/07/2025 6:06 AM WRAPPER SHEETER Sheldon Chaudhry DO LAB BLOOD ORDERABLES F inal Result [facility]AT [facility] ([place]) 1 [facility] [place] [address] * POCT glucose (06/07/2025 1:34 AM WRAPPER SHEETER) Glucose, POC 118 70 - 199 mg/dL Blood 06/07/2025 1:34 AM WRAPPER SHEETER 06/07/2025 1:34 AM WRAPPER SHEETER Bryanna Strickland MD LAB POCT ORDERABLES - DEVICE Final Result Performing Organization Address [facility]/ZIP Co de Phone Number [facility]AT [facility] ([place]) 1 [facility] [place] [address] * (ABNORMAL) Sodium level (06/07/2025 12:07 AM WRAPPER SHEETER) Sodium 128(L) 135 - 145 mmol/L Blood 06/07/2025 12:0 7 AM WRAPPER SHEETER 06/07/2025 12:16 AM WRAPPER SHEETER Sheldon Chaudhry DO LAB BLOOD ORDERABLES F inal Result Performing Organization Address City/[facility]/ZIP Co de Phone Number [facility] ([place]) 1 [facility] [place] [address] * POCT glucose (06/06/2025 8:41 PM WRAPPER SHEETER) Glucose, POC 114 70 - 199 mg/dL Blood 06/06/2025 8:41 PM WRAPPER SHEETER 06/06/2025 8:41 PM WRAPPER SHEETER Bryanna Strickland MD LAB POCT ORDERABLES - DEVICE Final Result [facility] ([place]) 1 [facility] [place] [place] [address] * (ABNORMAL) Sodium level (06/06/2025 6:06 PM WRAPPER SHEETER) [facility] Sodium 128(L) 135 - 145 mmol/L Blood 06/06/2025 6:06 PM WRAPPER SHEETER 06/06/2025 6:08 PM WRAPPER SHEETER Sheldon Chaudhry LAB BLOOD ORDERABLES F inal Result Performing Organization Address City/[facility]/ZIP Co de Phone Number [facility] ([place]) 1 [facility] [place] [address] * POCT glucose (06/06/2025 4:57 PM WRAPPER SHEETER) Glucose, POC 133 70 - 199 mg/dL Blood 06/06/2025 4:57 PM WRAPPER SHEETER 06/06/2025 4:57 PM WRAPPER SHEETER Bryanna Strickland MD LAB POCT ORDERABLES - DEVICE Final Result Performing Organization Address City/[facility]/ZIP Co de Phone Number [facility] ([place]) 1 [facility] [place] [address] * POCT glucose (06/06/2025 12:11 PM WRAPPER SHEETER) Glucose, POC 120 70 - 199 mg/dL Blood 06/06/2025 12:1 1 PM WRAPPER SHEETER 06/06/2025 12:11 PM WRAPPER SHEETER Bryanna Strickland MD LAB POCT ORDERABLES - DEVICE Final Result [facility] ([place]) 1 [facility] [place] [address] * (ABNORMAL) Sodium level (06/06/2025 12:08 PM WRAPPER SHEETER) Sodium 127(L) 135 - 145 mmol/L Blood 06/06/2025 12:0 8 PM WRAPPER SHEETER 06/06/2025 12:29 PM WRAPPER SHEETER Sheldon Chaudhry DO LAB BLOOD ORDERABLES F inal Result Performing Organization Address [facility] de Phone Number ZE[facility]AT [facility] ([place]) 1 [facility] [place] [address] * POCT glucose (06/06/2025 8:16 AM WRAPPER SHEETER) Glucose, POC 134 70 - 199 mg/dL Blood 06/06/2025 8:16 AM WRAPPER SHEETER 06/06/2025 8:16 AM WRAPPER SHEETER Bryanna Strickland MD LAB POCT ORDERABLES - DEVICE Final Result Performing Organization Address [facility] Co de Phone Number ZEENAT [facility] ([place]) 1 [facility] [place] [address] * (ABNORMAL) Sodium level (06/06/2025 6:23 AM WRAPPER SHEETER) Sodium 130(L) 135 - 145 mmol/L Blood 06/06/2025 6:23 AM WRAPPER SHEETER 06/06/2025 6:25 AM WRAPPER SHEETER Sheldon Chaudhry DO LAB BLOOD ORDERABLES F inal Result [facility] ([place]) 1 [facility] [place] [address] * POCT glucose (06/06/2025 1:37 AM WRAPPER SHEETER) [facility] Glucose, POC 179 70 - 199 mg/dL Blood 06/06/2025 1:37 AM WRAPPER SHEETER 06/06/2025 1:37 AM WRAPPER SHEETER Sheldon Garnica Richa DODD LAB POCT ORDERABLES - DEVICE Final Result [facility] ([place]) [address] [place] [address] [place] [address] * eGFR (06/06/2025 12:05 AM WRAPPER SHEETER) [facility] eGFR >90 >=60 mL/min/1. 73 m2 Comment: Interpretive Data Reference Interval Normal >/= 90 mL/min/1.73m2 Mildly decreased* 60 - 89 mL/min/1.73m2 Mildly to moderately decreased 45 - 59 mL/min/1.73m2 Moderately to severely decreased 30 - 44 mL/min/1.73m2 Severely decreased 15 - 29 mL/min/1.73m2 Kidney Failure < 15 mL/min/1.73m2 *Relative to young adult level Estimated glomerular filtration rate is determined by the 2020 CKD-EPI equation recommended by the National Kidney Foundation (A Unifying Approach to GFR Estimation: Recommendations of the NKF-ASK Task Force on Reassessing the Inclusion of Race in Diagnosing Kidney Disease, JASN 2020). The CKD-EPI equation should not be used for patients with unstable renal function and has not been validated in children and those over 70. Current interpretive data was last reviewed 2021. Blood 06/06/2025 12:0 5 AM WRAPPER SHEETER 06/06/2025 12:08 AM WRAPPER SHEETER us Cristian Hsu MD LAB BLOOD ORDERABLES Final Resu lt [facility] ([place]) 1 [facility] [place] [address] * (ABNORMAL) Comprehensive metabolic panel (06/06/2025 12:05 AM WRAPPER SHEETER) Sodium 125(L) 135 - 145 mmol/L Potassium, pl 3.2(L) 3.3 - 4.9 mmol/L [facility] ([place]) Chloride 89(L) 97 - 110 mmol/L [facility] ([place]) CO2 22 22 - 32 mmol/L [facility] ([place]) Anion gap 14 2 - 15 mmol/L [facility] ([place]) BUN 22 6 - 25 mg/dL [facility] ([place]) Creatinine 0.77(L) 0.80 - 1.30 mg/dL [facility] ([place]) Glucose 157 70 - 199 mg/dL [facility] ([place]) Comment: Interpretive Data Fasting glucose >/= 126 mg/dl is diagnostic for diabetes. Fasting is defined as no caloric intake for at least 8 hours. Fasting glucose between 100 mg/dl to 125 mg/dl is diagnostic of prediabetes. In a patient with classic symptoms of hyperglycemia or hyperglycemic crisis, a random glucose >/= 200 mg/dl is diagnostic for diabetes. In the absence of unequivocal hyperglycemia, results should be confirmed by repeat testing. The classification and Diagnosis of Diabetes Diabetes Care 2021; 46: S19-S40. Current interpretive data was last revised 2022. Calcium 9.0 8.5 - 10.3 mg/dL [facility] ([place]) Bilirubin, total 0.6 0.1 - 1.2 mg/dL [facility] ([place]) Protein, pl 6.2(L) 6.5 - 8.5 g/dL [facility] ([place]) Albumin 4.2 3.5 - 5.0 g/dL [facility] ([place]) Alk phos 39(L) 40 - 130 Units/L [facility] ([place]) ALT 28 7 - 55 Units/L [facility] ([place]) AST 30 10 - 50 Units/L [facility] ([place]) Blood 06/06/2025 12:0 5 AM WRAPPER SHEETER 06/06/2025 12:08 AM WRAPPER SHEETER Sheldon Chaudhry DO LAB BLOOD ORDERABLES F inal Result [facility] ([place]) [address] Department of Laboratories [place] [id number] * POCT glucose (06/05/2025 9:14 PM WRAPPER SHEETER) Glucose, POC 153 70 - 199 mg/dL Blood 06/05/2025 9:14 PM WRAPPER SHEETER 06/05/2025 9:14 PM WRAPPER SHEETER Sheldon Chaudhry DO LAB POCT ORDERABLES - DEVICE Final Result [facility] ([place]) 1 [place] [address] * Sodium, urine, random (06/05/2025 5:40 PM WRAPPER SHEETER) Pathologist [facility] Sodium, ur 21 mmol/L Comment: Interpretive Data No reference range established. Current interpretive data was last revised 2018. Urine 06/05/2025 5:40 PM WRAPPER SHEETER 06/05/2025 5:52 PM WRAPPER SHEETER Narrative [facility] ([place]) - 06/05/2025 6:09 PM WRAPPER SHEETER No normal range Sheldon Chaudhry DO LAB URINE ORDERABLES F inal Result Performing Organization Address [facility]/ZIP Co de Phone Number ZE[facility]AT [facility] ([place]) 1 [facility] [place] [address] * Osmolality, urine (06/05/2025 5:40 PM WRAPPER SHEETER) Pathologist [facility] Osmo, ur 404 mOsm/kg Comment:Testing performed by : [facility], 1 [facility], [place]., [address] Urine 06/05/2025 5:40 PM WRAPPER SHEETER 06/06/2025 1:41 PM WRAPPER SHEETER Sheldon Chaudhry DO LAB URINE ORDERABLES F inal Result [facility] ([place]) 1 [facility] [place] [address] * (ABNORMAL) Sodium level (06/05/2025 5:40 PM WRAPPER SHEETER) [facility] Sodium 124(L) 135 - 145 mmol/L Blood 06/05/2025 5:40 PM WRAPPER SHEETER 06/05/2025 5:52 PM WRAPPER SHEETER Sheldon Chaudhry DO LAB BLOOD ORDERABLES F inal Result Performing Organization Address City/[facility]/ZIP Co de Phone Number [facility]AT [facility] ([place]) 1 [place] [address] * Osmolality, blood (06/05/2025 5:40 PM WRAPPER SHEETER) [facility] Osmo 275 275 - 300 mOsm/kg Comment:Testing performed by : [facility], 1 [facility] [place] [address] Blood 06/05/2025 5:40 PM WRAPPER SHEETER 06/06/2025 1:39 PM WRAPPER SHEETER Sheldon Chaudhry DO LAB BLOOD ORDERABLES F inal Result Performing Organization Address [facility] de Phone Number ZE[facility]AT [facility] ([place]) 1 [facility] [place] [address] * POCT glucose (06/05/2025 5:25 PM WRAPPER SHEETER) [facility] Glucose, POC 183 70 - 199 mg/dL Blood 06/05/2025 5:25 PM WRAPPER SHEETER 06/05/2025 5:25 PM WRAPPER SHEETER Sheldon Chaudhry LAB POCT ORDERABLES - DEVICE Final Result Performing Organization Address [facility] Co de Phone Number [facility]AT [facility] ([place]) 1 [facility] [place] [address] * Aerobic culture and gram stain Sputum Sputum (06/05/2025 5:35 AM WRAPPER SHEETER) [facility] Direct Specimen Exam Stain: Moderate polymorphonuclear leukocytes seen. Few squamous epithelial cells seen. Abundant mixed bacterial angeline seen on Gram stain. Comment:Testing performed by : [facility], [address] [place]., [address] Report Final Report: Growth indicates upper respiratory angeline. [facility] ([place]) Comment:Testing performed by : [facility], [address] [place]., [address] Organism GROWTH INDICATES UPPER RESPIRATORY ANGELINE. [facility] ([place]) Sputum (Sputum) 06/05/2025 5 :35 AM WRAPPER SHEETER 06/05/2025 8:17 AM WRAPPER SHEETER Narrative [facility] ([place]) - 06/07/2025 10:25 AM WRAPPER SHEETER Testing performed by [facility] ([phone]) Specimens submitted from normally sterile body sites will have all bacterial morphotypes identified. Specimens that contain grossly mixed angeline and/or are from body sites that are not normally sterile will be examined for Staphylococcus aureus, Pseudomonas aeruginosa, beta-hemolytic strep, vancomycin-resistant Enterococcus and fungus. If any of these are isolated, the organism will be reported. Current interpretive data was last revised on 2016. Cristian Hsu MD LAB MICROBIOLOGY - [facility] Final Result [facility] ([place]) 1 [facility] Department [place] [address] * eGFR (06/05/2025 4:41 AM WRAPPER SHEETER) eGFR >90 >=60 mL/min/1. 73 m2 Comment: Interpretive Data Reference Interval Normal >/= 90 mL/min/1.73m2 Mildly decreased* 60 - 89 mL/min/1.73m2 Mildly to moderately decreased 45 - 59 mL/min/1.73m2 Moderately to severely decreased 30 - 44 mL/min/1.73m2 Severely decreased 15 - 29 mL/min/1.73m2 Kidney Failure < 15 mL/min/1.73m2 *Relative to young adult level Estimated glomerular filtration rate is determined by the 2020 CKD-EPI equation recommended by the National Kidney Foundation (A Unifying Approach to GFR Estimation: Recommendations of the NKF-ASK Task Force on Reassessing the Inclusion of Race in Diagnosing Kidney Disease, JASN 2020). The CKD-EPI equation should not be used for patients with unstable renal function and has not been validated in children and those over 70. Current interpretive data was last reviewed 2021. Blood 06/05/2025 4:41 AM WRAPPER SHEETER 06/05/2025 4:48 AM WRAPPER SHEETER Cristian Hsu MD LAB BLOOD ORDERABLES Final Resu lt [facility] ([place]) 1 [facility] Department [place] [address] * (ABNORMAL) CBC without differential (06/05/2025 4:41 AM WRAPPER SHEETER) WBC 8.59 3.80 - 9.90 K/cumm Hgb 14.9 13.0 - 17.5 g/dL [facility] ([place]) Hct 41.5 38.9 - 50.3 % [facility] ([place]) Plt 191 150 - 400 K/cumm [facility] ([place]) MPV 9.7 9.1 - 12.3 fL [facility] ([place]) RBC 4.47 4.30 - 5.80 M/cumm [facility] ([place]) MCV 92.8 81.3 - 96.4 fL [facility] ([place]) MCH 33.3 27.1 - 33.3 pg [facility] ([place]) MCHC 35.9(H) 32.3 - 35.7 g/dL [facility] ([place]) RDW CV 12.1 11.1 - 14.9 % [facility] ([place]) RDW SD 42.2 35.7 - 48.1 fL [facility] ([place]) NRBC abs 0.00 0.00 - 0.01 K/cumm [facility] ([place]) Blood 06/05/2025 4:41 AM WRAPPER SHEETER 06/05/2025 4:48 AM WRAPPER SHEETER us Cristian Hsu MD LAB BLOOD ORDERABLES Final Resu lt [facility] ([place]) 1 [facility] Department [place] [address] * (ABNORMAL) Comprehensive metabolic panel (06/05/2025 4:41 AM WRAPPER SHEETER) Sodium 125(L) 135 - 145 mmol/L Potassium, pl 4.2 3.3 - 4.9 mmol/L [facility] ([place]) Chloride 87(L) 97 - 110 mmol/L [facility] ([place]) CO2 24 22 - 32 mmol/L [facility] ([place]) Anion gap 14 2 - 15 mmol/L [facility] ([place]) BUN 11 6 - 25 mg/dL [facility] ([place]) Creatinine 0.71(L) 0.80 - 1.30 mg/dL [facility] ([place]) Glucose 198 70 - 199 mg/dL [facility] ([place]) Comment: Interpretive Data Fasting glucose >/= 126 mg/dl is diagnostic for diabetes. Fasting is defined as no caloric intake for at least 8 hours. Fasting glucose between 100 mg/dl to 125 mg/dl is diagnostic of prediabetes. In a patient with classic symptoms of hyperglycemia or hyperglycemic crisis, a random glucose >/= 200 mg/dl is diagnostic for diabetes. In the absence of unequivocal hyperglycemia, results should be confirmed by repeat testing. The classification and Diagnosis of Diabetes [facility] 202; 46: S19-S40. Current interpretive data was last revised 2022. Calcium 9.4 8.5 - 10.3 mg/dL [facility] ([place]) Bilirubin, total 1.0 0.1 - 1.2 mg/dL [facility] ([place]) Protein, pl 7.5 6.5 - 8.5 g/dL [facility] ([place]) Albumin 4.8 3.5 - 5.0 g/dL [facility] ([place]) Alk phos 51 40 - 130 Units/L [facility] ([place]) ALT 39 7 - 55 Units/L [facility] ([place]) AST 33 10 - 50 Units/L [facility] ([place]) Blood 06/05/2025 4:41 AM WRAPPER SHEETER 06/05/2025 4:48 AM WRAPPER SHEETER Sheldon Nahun Chaudhry DO LAB BLOOD ORDERABLES F inal Result Performing Organization Address [facility]/ZIP Co de Phone Number [facility] ([place]) 1 [facility] [place] [address] * (ABNORMAL) Troponin T high-sensitivity series (baseline, 2hr, 4hr, 6hr) (06/04/2025 9:58 PM WRAPPER SHEETER) Trop T hs 98(H) <=22 ng/L Comment: Interpretive Data For further hscTnT resources including the diagnostic algorithm and an aid in interpretation, copy and paste this link: https://nrl.testcatalog.org/show/hsTrop Current Interpretive Data last revised 2020. Blood 06/04/2025 9:58 PM WRAPPER SHEETER 06/04/2025 10:06 PM WRAPPER SHEETER Richi Deutsch MD LAB BLOOD ORDERABLES Final Res ult Performing Organization Address [facility] Co de Phone Number [facility] ([place]) 1 [facility] [place] [address] * (ABNORMAL) Urinalysis reflex to microscopic and culture Urine (06/04/2025 9:58 PM WRAPPER SHEETER) Color, ur Straw Yellow Clarity, ur Clear Clear [facility] ([place]) Specific gravity, ur 1.007 1.003 - 1.030 [facility] ([place]) pH, urine 6.5 [facility] ([place]) Comment: Interpretive Data U rine pH is affected by diet, medications, systemic acid-base disturbances, and renal tubular function. pH may affect urinary stone formation. For example, urine pH below 6.0 may help reduce the tendency for calcium phosphate stones and pH greater than 6.0 may reduce the tendency for uric acid stone formation. Source: [employer] Current Interpretive Data was last revised on 2017 Protein, ur ql Negative Negative [facility] ([place]) Glucose, ur ql 1+(A) Negative [facility] ([place]) Ketones, ur Trace Negative [facility] ([place]) Bilirubin, ur Negative Negative [facility] ([place]) Blood, ur Negative Negative [facility] ([place]) Urobilinogen, ur <2.0 <2.0 mg/dL [facility] ([place]) Nitrite, ur Negative Negative [facility] ([place]) Leukocyte esterase, ur Negative Negative [facility] ([place]) UA reflex comment Reflex conditions for microscopic UA and culture not met. [facility] ([place]) Urine 06/04/2025 9:58 PM WRAPPER SHEETER 06/04/2025 10:07 PM WRAPPER SHEETER Dennis Hawk MD LAB MICROBIOLOGY - GENERAL O RDERABLES Final Result [facility] ([place]) 1 [facility] [place] [address] * Drugs of Abuse Screen, Urine without Confirmation (06/04/2025 9:58 PM WRAPPER SHEETER) Amphetamine, ur Not Detected CutOff 500ng/mL Comment: Interpretive Data - Amphetamines: Samples containing greater than 500 ng/mL d-methamphetamine or other cross-reacting amphetamine compounds are reported as positive. Amphetamine immunoassays are subject to significant false positive rates due to cross-reactivity of non-amphetamine drugs. Confirmatory testing required for definitive results. Current Interpretive Data was last reviewed 2023. Barbiturates, ur Not Detected CutOff 200ng/mL [facility] ([place]) Comment: Interpretive Data - Barbiturates: Samples containing greater than 200 ng/mL secobarbital or other cross-reacting barbiturate compounds are reported as positive. False positive and false negative results are possible. Confirmatory testing required for definitive results. Current Interpretive Data was last reviewed 2023. Benzodiazepines, ur Not Detected CutOff 100ng/mL [facility] ([place]) Comment: Interpretive Data - Benzodiazepines: Samples containing greater than 100 ng/mL nordiazepam or other cross-reacting compounds are reported as positive. False positive and false negative results are possible. Confirmatory testing required for definitive results. Current Interpretive Data was last reviewed 2023. Cannabinoids, ur Not Detected CutOff 50 ng/mL [facility] ([place]) Comment: Interpretive Data - Cannabinoids: Samples containing greater than 50 ng/mL delta-9 THC -COOH or other cross- reacting compounds are reported as positive. False positive and false negative results are possible. Confirmatory testing required for definitive results. Current Interpretive Data was last reviewed 2023. Cocaine, ur Not Detected CutOff 150ng/mL [facility] ([place]) Comment: Interpretive Data - Cocaine: Samples containing greater than 150 ng/mL benzoylecgonine or other cross- reacting compounds are reported as positive. False positive and false negative results are possible. Confirmatory testing required for definitive results. Current Interpretive Data was last reviewed 2023. Fentanyl, Ur Not Detected CutOff 5 ng/mL [facility] ([place]) Comment: Interpretive Data - Fentanyl: Samples containing greater than 5 ng/mL norfentanyl, fentanyl, or other cross-reacting fentanyl compounds are reported as positive. False positive and false negative results are possible. Confirmatory testing required for definitive results. Current Interpretive Data was last reviewed 2023. Methadone, ur Not Detected CutOff 300ng/mL [facility] ([place]) Comment: Interpretive Data - Methadone: Samples containing greater than 300 ng/mL d,l-methadone or other cross-reacting compounds are reported as positive. False positive and false negative results are possible. Confirmatory testing required for definitive results. Current Interpretive Data was last reviewed 2023. Opiates, ur Not Detected CutOff 300ng/mL [facility] ([place]) Comment: Interpretive Data - Opiates: Samples containing greater than 300 ng/mL morphine or other cross-reacting compounds are reported as positive. False positive and false negative results are possible. Confirmatory testing required for definitive results. Current Interpretive Data was last reviewed 2023. Oxycodone, ur NOT DETECTED CutOff 100ng/mL [facility] ([place]) Comment: Interpretive Data - Oxycodone: Samples containing greater than 100 ng/mL oxycodone or other cross-reacting compounds are reported as positive. False positive and false negative results are possible. Confirmatory testing required for definitive results. Current Interpretive Data was last reviewed 2023. Phencyclidine, ur Not Detected CutOff 25 ng/mL [facility] ([place]) Comment: Interpretive Data - Phencyclidine: Samples containing greater than 25 ng/mL phencyclidine or other cross-reacting compounds are reported as positive. False positive and false negative results are possible. Confirmatory testing required for definitive results. Current Interpretive Data was last reviewed 2023. Urine Creatinine 27 mg/dL [facility] ([place]) Comment: Interpretive Data Urine Creatinine: < 10 mg/dL is extremely dilute = or > 10 but < 20 mg/dL is dilute = or > 20 mg/dL is normal Current Interpretive Data was last revised on 2017. Urine 06/04/2025 9:58 PM WRAPPER SHEETER 06/04/2025 10:07 PM WRAPPER SHEETER Narrative [facility] ([place]) - 06/04/2025 10:31 PM WRAPPER SHEETER Drug of Abuse screening is performed by immunoassay for medical purposes only. This is not to be used for Pain Management purposes. us Dennis Hawk MD LAB URINE ORDERABLES Final R esult Performing Organization Address City/[facility] Co de Phone Number ZEENAT [facility] ([place]) 1 [facility] Department of Laboratories [place] [id number] * ECG 12 lead (06/04/2025 8:56 PM WRAPPER SHEETER) 06/04/2025 8:56 PM WRAPPER SHEETER Narrative [facility] - 06/05/2025 10:08 AM WRAPPER SHEETER Vent Rate: 88 bpm RR Interval: 677 msec [place] Interval: 192 msec QRS Duration: 97 msec QT Interval: 394 msec QTC Interval: 440 msec P-R-T [place]: 92 - -56 - 0 degrees IMPRESSION: SINUS RHYTHM LEFT AXIS DEVIATION [QRS AXIS < -30] ANTEROSEPTAL MYOCARDIAL INFARCTION , OF INDETERMINATE AGE [40+ ms Q WAVE IN V1- V4] ABNORMAL ECG Compared to prior EKG, heart rate has decreased Electronically Signed By: Paul Payne MD Richi Deutsch MD ECG ORDERABLES Final Result Performing Organization Address [facility] Co de Phone Number [facility]fold [facility] * (ABNORMAL) Troponin T high-sensitivity 6-hour (06/04/2025 7:27 PM WRAPPER SHEETER) Trop T hs 98(H) <=22 ng/L Comment: Aryan Mott RN ICU Interpretive Data For further hscTnT resources including the diagnostic algorithm and an aid in interpretation, copy and paste this link: https://nrl.testcatalog.org/show/hsTrop Current Interpretive Data last revised 2020. Trop T hs delta 73(C) ng/L [facility] ([place]) Comment:Critical Result call ed by [email or web address] at 2025-06-04 20:03:15. Result Read Back by Aryan Mott RN ICU Trop T hs interp Significa nt(C) [facility] ([place]) Comment:Critical Result call ed by [id number] at 2025-06-04 20:03:15. Result Read Back by Aryan Mott RN ICU Blood 06/04/2025 7:27 PM WRAPPER SHEETER 06/04/2025 7:33 PM WRAPPER SHEETER us Dennis Hawk MD LAB BLOOD ORDERABLES Final R esult [facility] ([place]) [address] [place] [address] [place] [address] * Procalcitonin (06/04/2025 7:27 PM WRAPPER SHEETER) Procalcitonin 0.07 <=0.25 ng/mL Comment:Testing performed by : [facility] [place]., [address] Blood 06/04/2025 7:27 PM WRAPPER SHEETER 06/05/2025 6:22 PM WRAPPER SHEETER Cristian Hsu MD LAB BLOOD ORDERABLES Final Resu lt [facility] ([place]) 1 [facility] [place] [place] [address] * MRSA Only (Staphylococcus aureus) PCR Nasal (06/04/2025 7:27 PM WRAPPER SHEETER) PCR Scrn, Methicillin resistant Staphylococcus aureus (MRSA) Not Detected Not Detected Comment: Interpretive Data Testing performed using Nucleic Acid Amplification with the EvolveMol Xpert MRSA NxG Assay. This assay detects target DNA from mecA, mecC and the SCCmec insertion site of Staphylococcus aureus using Real-Time PCR and has been cleared by the FDA. Performance characteristics have been verified by the [facility]. Current Interpretive Data was last revised on 2022 Nasal 06/04/2025 7:27 PM WRAPPER SHEETER 06/04/2025 7:33 PM WRAPPER SHEETER Cristian Hsu MD LAB MICROBIOLOGY - [facility] Final Result Performing Organization Address [facility] Co de Phone Number ZEENAT [facility] ([place]) [address] [place] [address] [place] [place] [address] * (ABNORMAL) Troponin T high-sensitivity 4-hour (06/04/2025 5:04 PM WRAPPER SHEETER) Pathologist [facility] Trop T hs 61(H) <=22 ng/L Comment: Interpretive Data For further hscTnT resources including the diagnostic algorithm and an aid in interpretation, copy and paste this link: https://nrl.testcatalog.org/show/hsTrop Current Interpretive Data last revised 2020. Trop T hs pct delta -6 % [facility] ([place]) Trop T hs interp Equivocal [facility] ([place]) Blood 06/04/2025 5:04 PM WRAPPER SHEETER 06/04/2025 5:06 PM WRAPPER SHEETER Dennis Hawk MD LAB BLOOD ORDERABLES Final R esult Performing Organization Address City/[facility]/ZIP Co de Phone Number [facility] ([place]) 1 [facility] [place] [place] [address] * (ABNORMAL) Blood gas, venous (06/04/2025 4:05 PM WRAPPER SHEETER) Pathologist [facility] pH, Venous 7.33 7.32 - 7.43 PCO2, Venous 52(H) 40 - 50 mmHg [facility] ([place]) PO2, Venous 31 mmHg [facility] ([place]) HCO3 Venous, Calculated 27 20 - 30 mmol/L [facility] ([place]) BE, venous 0 mmol/L [facility] ([place]) Comment: Interpretive Data No Reference Range Established Current Interpretive Data was last revised on 2017. Blood 06/04/2025 4:05 PM WRAPPER SHEETER 06/04/2025 4:07 PM WRAPPER SHEETER Dennis Hawk MD LAB BLOOD ORDERABLES Final R esult Performing Organization Address City/[facility]/ZIP Co de Phone Number [facility]AT [facility] ([place]) 1 [facility] Department [place] [address] * (ABNORMAL) Troponin T high-sensitivity 2-hour (06/04/2025 3:29 PM WRAPPER SHEETER) Trop T hs 67(H) <=22 ng/L Comment: Aparna Lewis RN ED Interpretive Data For further hscTnT resources including the diagnostic algorithm and an aid in interpretation, copy and paste this link: https://nrl.testcatalog.org/show/hsTrop Current Interpretive Data last revised 2020. Trop T hs delta 42(C) ng/L [facility] ([place]) Comment:Critical Result call ed by [id number] at 2025-06-04 15:56:04. Result Read Back by Aparna Lewis RN ED Trop T hs interp Significa nt(C) [facility] ([place]) Comment:Critical Result call ed by [id number] at 2025-06-04 15:56:04. Result Read Back by Aparna Lewis RN ED Blood 06/04/2025 3:29 PM WRAPPER SHEETER 06/04/2025 3:32 PM WRAPPER SHEETER Dennis Hawk MD LAB BLOOD ORDERABLES Final R esult [facility] ([place]) 1 [facility] Department [place] [address] * (ABNORMAL) Blood gas, venous (06/04/2025 2:33 PM WRAPPER SHEETER) pH, Venous 7.24(L) 7.32 - 7.43 PCO2, Venous 67(C) 40 - 50 mmHg [facility] ([place]) Comment:Critical result call ed to and read back by Aparna Joseph RN ED on 06/04/2025 14:41:17 WRAPPER SHEETER to [id number]. PO2, Venous 34 mmHg [facility] ([place]) HCO3 Venous, Calculated 27 20 - 30 mmol/L [facility] ([place]) BE, venous -2 mmol/L [facility] ([place]) Comment: Interpretive Data No Reference Range Established Current Interpretive Data was last revised on 2017. Blood 06/04/2025 2:33 PM WRAPPER SHEETER 06/04/2025 2:35 PM WRAPPER SHEETER Dennis Hawk MD LAB BLOOD ORDERABLES Final R esult [facility] ([place]) 1 [place] [address] * XR Chest 1 Vw Portable (If patient hemodynamically UNstable or UNable to ambulate) (06/04/2025 1:37PM WRAPPER SHEETER) Anatomical Region Laterality Modality Body, Chest N/A Computed Radiogr aphy 06/04/2025 2:13 PM WRAPPER SHEETER Impressions 06/04/2025 2:13 PM WRAPPER SHEETER No evidence of an acute cardiopulmonary abnormality. Electronically signed by: Willi Elkins M.D. Narrative 06/04/2025 2:13 PM WRAPPER SHEETER EXAM DESCRIPTION: XR CHEST 1 VIEW REASON FOR STUDY: Shortness of breath TECHNIQUE: XR CHEST 1 VIEW COMPARISON: 02/28/2022. FINDINGS: There is no focal consolidation. No pleural effusion or pneumothorax. Cardiac and mediastinal silhouette are normal. There is a left chest cardiac device with a single lead of the right ventricle, the lead appears to be looped over the region of the right atrium. The appearance is unchanged from 2021. No acute osseous abnormality. Procedure Note Willi Elkins MD - 06/04/2025 EXAM DESCRIPTION: XR CHEST 1 VIEW REASON FOR STUDY: Shortness of breath TECHNIQUE: XR CHEST 1 VIEW COMPARISON: 02/28/2022. FINDINGS: There is no focal consolidation. No pleural effusion or pneumothorax. Cardiac and mediastinal silhouette are normal. There is a left chest cardiac device with a single lead of the right ventricle, the lead appears to be looped over the region of the right atrium. The appearance is unchanged from 2021. No acute osseous abnormality. IMPRESSION: No evidence of an acute cardiopulmonary abnormality. Electronically signed by: Willi Elkins M.D. us Dennis Hawk MD IMG XR PROCEDURES Final Resu lt * Influenza A/B, RSV, and COVID-19 PCR Nasopharyngeal (06/04/2025 1:18 PM WRAPPER SHEETER) COVID-19 RNA Negative Negative Influenza A RNA Negative Negative [facility] ([place]) Influenza B RNA Negative Negative [facility] ([place]) RSV RNA Negative Negative [facility] ([place]) Comment: Interpretive data: Testing performed by [facility]. This test is performed using the EvolveMol Xpert Xpress CoV-2/Flu/RSV plus assay. This is a multiplex, real- time reverse transcriptase PCR assay intended for the qualitative detection of nucleic acid from SARS-CoV-2, influenza A, influenza B, and respiratory syncytial virus. This assay has been cleared by the [place] Food and Drug administration. The performance characteristics have been verified by the [facility]. Results must be considered in the clinical context, and a negative result does not rule out infection. Interpretive Data last revised 2023 Nasopharyngeal 06/04/2025 1: 18 PM WRAPPER SHEETER 06/04/2025 1:21 PM WRAPPER SHEETER [facility]ative [facility] ([place]) - 06/04/2025 2:07 PM WRAPPER SHEETER Is the Patient experiencing symptoms consistent with COVID?->Unknown Dennis Hawk MD LAB MICROBIOLOGY - GENERAL O RDERABLES Final Result [facility] ([place]) 1 [facility] Department of Laboratories [place] [id number] * (ABNORMAL) Pro B-type natriuretic peptide (06/04/2025 1:18 PM WRAPPER SHEETER) NT-proBNP 964(H) <=300 pg/mL Comment: Interpretive Comments: A. Dyspnea in Acute Care Setting All Ages: < 300 pg/ml, acute heart failure unlikely. < 50 yrs: 300 - 450 pg/ml, further investigation warranted. > 450 pg/ml, acute heart failure likely. 50 - 74 yrs: 300 - 900 pg/ml, further investigation warranted. > 900 pg/ml, acute heart failure likely . > or = 75 yrs: 450 - 1800 pg/ml, further investigation warranted. > 1800 pg/ml, acute heart failure likely. B. Non-acute Setting < 75 yrs < 125 pg/ml, rules out heart failure. > or = 125 pg/ml, further investigation warranted. > or = 75 yrs < 450 pg/ml, rules out heart failure. > or = 450 pg/ml, further investigation warranted. - Knowledge of each individual patient's NT-proBNP range may be more useful than using similar cut-points for every patient. Please note that marked elevations in NT-proBNP levels may be observed in state other than Left Ventricular Congestive Failure, including: acute coronary syndromes, right heart strain/failure (including pulmonary embolism and cor pulmonale), critical illness, renal failure, as well as advanced age. - References: 1. Allyssa FRANK et.al. Eur Heart J. 2006:27:330-337. 2. Mendoza RW, Nini BURGESS. J. AM Tawny Cardiol: Cardiovasc Imag. 2009;2: 216- 225. Interpretive Data Last Revised Date: 2018. Blood 06/04/2025 1:18 PM WRAPPER SHEETER 06/04/2025 1:21 PM WRAPPER SHEETER Dennis Hawk MD LAB BLOOD ORDERABLES Final R esult [facility] ([place]) 1 [facility] Department [place] [address] * ECG 12 lead (06/04/2025 1:17 PM WRAPPER SHEETER) 06/04/2025 1:17 PM WRAPPER SHEETER Narrative [facility] - 06/04/2025 5:19 PM WRAPPER SHEETER Vent Rate: 111 bpm RR Interval: 538 msec OH Interval: 212 msec QRS Duration: 108 msec QT Interval: 327 msec QTC Interval: 393 msec P-R-T [place]: 85 - -53 - 100 degrees IMPRESSION: SINUS TACHYCARDIA WITH FIRST DEGREE AV BLOCK PATTERN CONSISTENT WITH PULMONARY DISEASE LEFT ANTERIOR FASCICULAR BLOCK [QRS AXIS <= -45, QR IN I, RS IN II] SEPTAL MYOCARDIAL INFARCTION , OF INDETERMINATE AGE [40+ ms Q WAVE IN V1/V2] ABNORMAL ECG Electronically Signed By: Paul Payne MD Dennis Hawk MD ECG ORDERABLES Final Result [facility] * (ABNORMAL) Troponin T high-sensitivity series (baseline, 2hr, 4hr, 6hr) (06/04/2025 1:17 PM WRAPPER SHEETER) Pathologist [facility] Trop T hs 25(H) <=22 ng/L Comment: Interpretive Data For further hscTnT resources including the diagnostic algorithm and an aid in interpretation, copy and paste this link: https://nrl.testcatalog.org/show/hsTrop Current Interpretive Data last revised 2020. Blood 06/04/2025 1:17 PM WRAPPER SHEETER 06/04/2025 1:21 PM WRAPPER SHEETER Dennis Hawk MD LAB BLOOD ORDERABLES Final R esult [facility] ([place]) 1 [facility] [place] [address] * eGFR (06/04/2025 1:17 PM WRAPPER SHEETER) Pathologist [facility] eGFR >90 >=60 mL/min/1. 73 m2 Comment: Interpretive Data Reference Interval Normal >/= 90 mL/min/1.73m2 Mildly decreased* 60 - 89 mL/min/1.73m2 Mildly to moderately decreased 45 - 59 mL/min/1.73m2 Moderately to severely decreased 30 - 44 mL/min/1.73m2 Severely decreased 15 - 29 mL/min/1.73m2 Kidney Failure < 15 mL/min/1.73m2 *Relative to young adult level Estimated glomerular filtration rate is determined by the 2020 CKD-EPI equation recommended by the National Kidney Foundation (A Unifying Approach to GFR Estimation: Recommendations of the NKF-ASK Task Force on Reassessing the Inclusion of Race in Diagnosing Kidney Disease, JASN 2020). The CKD-EPI equation should not be used for patients with unstable renal function and has not been validated in children and those over 70. Current interpretive data was last reviewed 2021. Blood 06/04/2025 1:17 PM WRAPPER SHEETER 06/04/2025 1:21 PM WRAPPER SHEETER us Dennis Hawk MD LAB BLOOD ORDERABLES Final R esult [facility] ([place]) 1 [facility] [place] [address] * (ABNORMAL) Differential, auto (06/04/2025 1:17 PM WRAPPER SHEETER) Neutrophil abs 6.56(H) 1.50 - 6.50 K/cumm Imm gran abs 0.06 0.00 - 0.10 K/cumm [facility] ([place]) Lymphocyte abs 3.18 0.80 - 3.30 K/cumm [facility] ([place]) Monocyte abs 1.01(H) 0.20 - 0.80 K/cumm [facility] ([place]) Eosinophil abs 0.91(H) 0.00 - 0.50 K/cumm [facility] ([place]) Basophil abs 0.18(H) 0.00 - 0.10 K/cumm [facility] ([place]) Neutrophil pct 55.2 % [facility] ([place]) Comment: Interpretive Data Percent cell count reference ranges are not reported, since discordance with absolute values may lead to misinterpretation of CBC data. Current Interpretive Data was last revised on 2017. Imm gran pct 0.5 % [facility] ([place]) Comment: Interpretive Data Percent cell count reference ranges are not reported, since discordance with absolute values may lead to misinterpretation of CBC data. Current Interpretive Data was last revised on 2017. Lymphocyte pct 26.7 % [facility] ([place]) Comment: Interpretive Data Percent cell count reference ranges are not reported, since discordance with absolute values may lead to misinterpretation of CBC data. Current Interpretive Data was last revised on 2017. Monocyte pct 8.5 % [facility] ([place]) Comment: Interpretive Data Percent cell count reference ranges are not reported, since discordance with absolute values may lead to misinterpretation of CBC data. Current Interpretive Data was last revised on 2017. Eosinophil pct 7.6 % [facility] ([place]) Comment: Interpretive Data Percent cell count reference ranges are not reported, since discordance with absolute values may lead to misinterpretation of CBC data. Current Interpretive Data was last revised on 2017. Basophil pct 1.5 % [facility] ([place]) Comment: Interpretive Data Percent cell count reference ranges are not reported, since discordance with absolute values may lead to misinterpretation of CBC data. Current Interpretive Data was last revised on 2017. Blood 06/04/2025 1:17 PM WRAPPER SHEETER 06/04/2025 1:21 PM WRAPPER SHEETER us Dennis Hawk MD LAB BLOOD ORDERABLES Final R esult [facility] ([place]) 1 [facility] Department of Laboratories [place], [place] [id number] * (ABNORMAL) CBC with auto differential (06/04/2025 1:17 PM WRAPPER SHEETER) WBC 11.90(H) 3.80 - 9.90 K/cumm Hgb 14.8 13.0 - 17.5 g/dL [facility] ([place]) Hct 44.0 38.9 - 50.3 % [facility] ([place]) Plt 254 150 - 400 K/cumm [facility] ([place]) MPV 9.4 9.1 - 12.3 fL [facility] [facility] ([place] RBC 4.56 4.30 - 5.80 M/cumm [facility] ([place] MCV 96.5(H) 81.3 - 96.4 fL [facility] ([place] MCH 32.5 27.1 - 33.3 pg [facility] ([place] MCHC 33.6 32.3 - 35.7 g/dL [facility] ([place] RDW CV 12.3 11.1 - 14.9 % [facility] ([place] RDW SD 44.3 35.7 - 48.1 fL [facility] ([place] NRBC abs 0.00 0.00 - 0.01 K/cumm [facility] ([place] Blood 06/04/2025 1:17 PM WRAPPER SHEETER 06/04/2025 1:21 PM WRAPPER SHEETER Dennis Hawk MD LAB BLOOD ORDERABLES Final R esult [facility] ([place]) 1 [facility] Department of Laboratories [place], [place] [id number] * (ABNORMAL) Blood gas, venous (06/04/2025 1:17 PM WRAPPER SHEETER) pH, Venous 7.25(L) 7.32 - 7.43 PCO2, Venous 55(H) 40 - 50 mmHg [facility] ([place]) PO2, Venous 71 mmHg [facility] ([place]) Comment: Interpretive Data No reference range established. Current interpretive data was last revised 2017. HCO3 Venous, Calculated 23 20 - 30 mmol/L [facility] ([place]) BE, venous -5 mmol/L [facility] ([place] Comment: Interpretive Data No Reference Range Established Current Interpretive Data was last revised on 2017. Blood 06/04/2025 1:17 PM WRAPPER SHEETER 06/04/2025 1:22 PM WRAPPER SHEETER us Dennis Hawk MD LAB BLOOD ORDERABLES Final R esult [facility] ([place]) 1 [facility] Department [place] [address] * (ABNORMAL) Comprehensive metabolic panel (06/04/2025 1:17 PM WRAPPER SHEETER) Sodium 128(L) 135 - 145 mmol/L Potassium, pl 4.4 3.3 - 4.9 mmol/L [facility] ([place]) Chloride 90(L) 97 - 110 mmol/L [facility] ([place]) CO2 22 22 - 32 mmol/L [facility] ([place]) Anion gap 16(H) 2 - 15 mmol/L [facility] ([place]) BUN 7 6 - 25 mg/dL [facility] ([place]) Creatinine 0.79(L) 0.80 - 1.30 mg/dL [facility] ([place]) Glucose 184 70 - 199 mg/dL [facility] ([place]) Comment: Interpretive Data Fasting glucose >/= 126 mg/dl is diagnostic for diabetes. Fasting is defined as no caloric intake for at least 8 hours. Fasting glucose between 100 mg/dl to 125 mg/dl is diagnostic of prediabetes. In a patient with classic symptoms of hyperglycemia or hyperglycemic crisis, a random glucose >/= 200 mg/dl is diagnostic for diabetes. In the absence of unequivocal hyperglycemia, results should be confirmed by repeat testing. The classification and Diagnosis of Diabetes Diabetes Care 202; 46: S19-S40. Current interpretive data was last revised 2022. Calcium 9.4 8.5 - 10.3 mg/dL [facility] ([place]) Bilirubin, total 0.9 0.1 - 1.2 mg/dL [facility] ([place]) Protein, pl 7.0 6.5 - 8.5 g/dL [facility] ([place]) Albumin 4.7 3.5 - 5.0 g/dL [facility] ([place]) Alk phos 54 40 - 130 Units/L [facility] ([place]) ALT 40 7 - 55 Units/L [facility] ([place]) AST 32 10 - 50 Units/L [facility] ([place]) Blood 06/04/2025 1:17 PM WRAPPER SHEETER 06/04/2025 1:21 PM WRAPPER SHEETER Dennis Hawk MD LAB BLOOD ORDERABLES Final R esult [facility] ([place]) 1 [facility] Department [place] [address] from Last 3 Months Insurance [facility] Advance Directives For more information, please contact: [phone] * Full Code (Latest Code Status on File) Date Activated Date Inactivated Comments 06/04/2025 8:39 PM 06/08/2025 5:32 PM * LIMITED - No CPR Date Activated Date Inactivated Comments 06/04/2025 6:09 PM 06/04/2025 8:39 PM Question Answer Comments Provide aggressive medical m anagement before a full cardiopulmonary arrest occurs. Use antibiotics, IV Fluids, and medical treatment unless specifically selected below: No intubationNo non-invasive ventilationNo cardioversionNo internal / external pacemaker * Full Code Date Activated Date Inactivated Comments 06/04/2025 4:03 PM 06/04/2025 6:09 PM * Full Code Date Activated Date Inactivated Comments 02/26/2022 1:50 PM 03/02/2022 7:33 PM Care Teams [employer] House Helper Relationship Specialty Start Date End Date Caity Hickman MD PCP - General Family Practice 03/17/20 Emre Ingram MD [address] [place] [address] [address] Consulting Physician Cardiovascular Disease 06/07/25
[2025-06-11 19:41] LABS: Anion Gap 5 mmol/L (4-12); Blood Urea Nitrogen 15 mg/dL (9-20); Calcium 9.1 mg/dL (8.4-10.2); Carbon Dioxide 27 mmol/L (22-30); Chloride 97 mmol/L (98-107); Estimated Glomerular Filt Rate > 60; Glucose 107 mg/dL (65-110); Potassium 4.6 mmol/L (3.4-5.0); Sodium 129 mmol/L (137-145)
== END 2025-06-11 08:01 | disposition home or self-care (01) ==
LOC: ANHGOSHLAB 08:01
PROVIDERS: PCP Nurse Practitioner Family
DX: E87.1 Hypo-osmolality and hyponatremia (principal)
CPT/HCPCS: 36415; 80048